=== PATIENT | female | born 1985 | race Caucasian/White ===

== ENCOUNTER → 2019-09-22 07:52 | Outpatient (BNVA) | payer MEDICAID, SELFPAY | PROVIDERS: Family Provider Nurse Practitioner; PCP Nurse Practitioner; Visit Provider Nurse Practitioner Psychiatric/Mental Health | DX: F33.2 Major depressive disorder, recurrent severe without psychotic features (principal); F41.9 Anxiety disorder, unspecified | CPT/HCPCS: 99213 ==

== ENCOUNTER → 2019-10-19 08:13 | Outpatient (BNVA) | payer MEDICAID, SELFPAY | PROVIDERS: Family Provider Nurse Practitioner; PCP Nurse Practitioner; Visit Provider Counselor Professional | DX: F33.2 Major depressive disorder, recurrent severe without psychotic features (principal); F40.10 Social phobia, unspecified | CPT/HCPCS: 90791 ==

== ENCOUNTER → 2019-11-03 07:48 | Outpatient (BNVA) | payer MEDICAID, SELFPAY | PROVIDERS: Family Provider Nurse Practitioner; PCP Nurse Practitioner; Visit Provider Nurse Practitioner Psychiatric/Mental Health | DX: F33.2 Major depressive disorder, recurrent severe without psychotic features (principal); F41.9 Anxiety disorder, unspecified | CPT/HCPCS: 99213 ==

== ENCOUNTER → 2020-02-20 13:25 | Outpatient (BNVA) | payer MEDICAID, SELFPAY | PROVIDERS: Family Provider Nurse Practitioner; PCP Nurse Practitioner; Visit Provider Nurse Practitioner Family | DX: Z11.59 Encounter for screening for other viral diseases (principal); Z20.828 Contact with and (suspected) exposure to other viral communicable diseases | CPT/HCPCS: 87635 ==

== ENCOUNTER 2021-03-08 10:09 | Outpatient (CLI) | payer MEDICAID, SELFPAY ==
--- NOTE | 2021-03-08 10:22 | US_ITS ---
WS: [id number] ULTRASOUND THYROID TECHNIQUE: Ultrasound of the thyroid. CLINICAL INFORMATION: NECK MASS COMPARISON: None. FINDINGS: Thyroid: Asymmetric enlargement of the right thyroid lobe compared to the left. Diffuse heterogeneous right thyroid lobe echotexture. Left thyroid lobe has a more normal appearance. No nodules to target for biopsy. Right thyroid lobe: 6.9 cm x 4.7 cm x 3.7 cm Left thyroid lobe: 3.7 cm x 1.5 cm x 2.0 cm. Isthmus: 0.4 mm. Cervical lymphadenopathy: None. US/US thyroid [id number] IMPRESSION: 1. Asymmetric heterogeneous enlargement of the right thyroid lobe compared to the left likely due to goiter. Recommend correlation with thyroid function stud ies. 2. No dominant nodules to target for biopsy.
== END 2021-03-08 10:10 | disposition home or self-care (01) ==
PROVIDERS: PCP Nurse Practitioner Family; Visit Provider Nurse Practitioner Family
DX: R22.1 Localized swelling, mass and lump, neck (principal); E04.9 Nontoxic goiter, unspecified
CPT/HCPCS: 76536

== ENCOUNTER 2021-07-01 14:54 | Outpatient (CLI) | payer MEDICAID, SELFPAY ==
--- NOTE | 2021-07-01 14:58 | US_ITS ---
WS: [id number] RIGHT UPPER QUADRANT ULTRASOUND HISTORY: ELEVATED LIVER ENZYMES COMPARISON: None. Technically difficult RIGHT upper quadrant ultrasound due to body habitus. Liver: 18.9 cm in length. Enlarged dense liver. The entire liver not well visualized due to hepatic s teatosis and attenuation. No mass or bile duct dilatation identified. Portal Vein: Not well visualized. Gallbladder: Normally distended gallbladder with no stones or wall thickening. CBD: 0.5 cm Pancreas: Distal body and tail completely obscured by bowel gas. Head is normal. Right kidney: 11.1 cm in length. Normal size and echogenicity. No hydronephrosis or mass. Aorta and IVC: Unremarkable abdominal aorta and IVC. No ascites. US/US gall bladder [id number] IMPRESSION: 1. Technically difficult and limited evaluation of the RIGHT upper quadrant du e to body habitus. 2. Gallbladder is normal. 3. Moderate hepatomegaly and hepatic steatosis.
== END 2021-07-01 14:55 | disposition home or self-care (01) ==
LOC: RAD 14:55
PROVIDERS: PCP Nurse Practitioner Family; Visit Provider Nurse Practitioner Family
DX: R74.8 Abnormal levels of other serum enzymes (principal); R16.0 Hepatomegaly, not elsewhere classified; K76.0 Fatty (change of) liver, not elsewhere classified
CPT/HCPCS: 76705

== ENCOUNTER → 2022-02-26 14:11 | Outpatient (BNVA) | payer MEDICAID, SELFPAY | PROVIDERS: PCP Family Medicine; Visit Provider Family Medicine | DX: E11.9 Type 2 diabetes mellitus without complications (principal); F31.9 Bipolar disorder, unspecified; I10 Essential (primary) hypertension | CPT/HCPCS: 80053; 80061; 83036; 85025 ==

== ENCOUNTER → 2022-09-10 08:41 | Outpatient (BNVA) | payer MEDICAID, SELFPAY | PROVIDERS: PCP Family Medicine; Visit Provider Family Medicine | DX: E11.9 Type 2 diabetes mellitus without complications (principal); I10 Essential (primary) hypertension; E04.9 Nontoxic goiter, unspecified | CPT/HCPCS: 80053; 80061; 83036; 84439; 84443; 84481; 85025 ==

== ENCOUNTER 2022-09-25 14:12 | Outpatient (CLI) | payer MEDICAID, SELFPAY ==
--- NOTE | 2022-09-25 14:30 | US_ITS ---
WS: [id number] THYROID ULTRASOUND HISTORY: Enlarged thyroid. COMPARISON: 03/08/2021 Right lobe: 4.1 cm x 4.0 cm x 7.2 cm (w x ap x l). Volume: 60.6 cm3. Markedly enlarged heterogeneous LEFT thyroid. Thyroid is similar size to the prior study. Mixed echog enicity throughout the thyroid. Very similar to the prior study. There are cystic and solid component s. Very minimal increased vascularity. Left lobe: 1.0 cm x 1.6 cm x 4.4 cm (w x ap x l). Volume: 3.6 cm3. Normal size and echotexture. No significant or dominant nodules are present. Isthmus: 0.4 cm. Unremarkable appearing cervical chain lymph nodes. US/US thyroid [id number] IMPRESSION: 1. Diffuse marked enlargement of the RIGHT thyroid. Asymmetric to the LEFT thy roid but similar to the prior exam of 03/08/2021. May be a goiter. Neoplasm is n ot excluded. 2. Small caliber LEFT thyroid.
== END 2022-09-25 14:13 | disposition home or self-care (01) ==
LOC: RAD 14:15
PROVIDERS: PCP Family Medicine; Visit Provider Family Medicine
DX: E04.9 Nontoxic goiter, unspecified (principal)
CPT/HCPCS: 76536; 80053; 80061; 83036; 84439; 84443; 84481; 85025

== ENCOUNTER 2023-02-19 14:47 | Outpatient (CLI) | payer MEDICAID, SELFPAY ==
--- NOTE | 2023-02-19 14:50 | XR_ITS ---
WS: [id number] Exam: XR foot LT 2V [id number] Date/Time of Exam: 02/19/2023 2:54 PM Reason For Exam: Left foot pain No acute fracture or dislocation. Unremarkable soft tissues. Large calcaneal spurs. IMPRESSION: 1. No fracture noted. 2. Large calcaneal spurs with marked cortical thickening of the posterior calcaneus.
== END 2023-02-19 14:48 | disposition home or self-care (01) ==
PROVIDERS: PCP Family Medicine; Visit Provider Family Medicine
DX: M77.32 Calcaneal spur, left foot (principal); M79.672 Pain in left foot
CPT/HCPCS: 73620

== ENCOUNTER 2023-04-03 12:09 | Outpatient (CLI) | payer MEDICAID, SELFPAY ==
--- NOTE | 2023-04-03 12:22 | CT_ITS ---
WS: [id number] CT NECK TECHNIQUE: Contrast-enhanced CT of the neck with coronal and sagittal reformatted images. CLINICAL INFORMATION: NONTOXIC GOITER/NONTOXIC MULTINODULAR GOITER/OTHER DYSPHAGIA COMPARISON: Ultrasound 09/25/2022 DLP: 410.[address] scans at [facility] use at least one of these dose optimization techniques: automated e xposure control; mA and/or kV adjustment per patient size (includes targeted exams where dose is matc hed to clinical indication); or iterative reconstruction. FINDINGS: Diffuse marked enlargement of the RIGHT thyroid similar to the recent ultrasound. Normal-appearing LE FT thyroid. Markedly enlarged RIGHT thyroid measures approximately 3.7 x 3.9 x 7.1 cm with diffuse he terogeneous enhancement. Mild RIGHT to LEFT mass effect on the trachea. No critical airway stenosis. Parotid glands are normal. Normal submandibular glands. Mastoid air cells are well aerated. Paranasal sinuses are well aerated. Normal posterior nasopharynx. Normal parapharyngeal fat. No evidence of amezcua praglottic or glottic mass. Subglottic airway is patent. Lung apices are well aerated. A few hazy [place] cities in the LEFT greater than RIGHT upper lobe likely inflammatory. Mild bilateral cervical lymphad enopathy in the upper cervical chains. Largest lymph nodes measure 10 to 11 mm in short axis dimensio n. These are nonspecific in etiology. IMPRESSION: 1. Diffuse heterogeneous enhancement with marked enlargement of the RIGHT thyroid lobe similar to th e prior ultrasound measuring up to 7.1 cm nonspecific but most likely due to goiter. This could be fu rther evaluated with ultrasound guided FNA if indicated. Mild RIGHT to LEFT mass effect on the trache a. No critical stenosis. 2. LEFT thyroid is normal in appearance. 3. Mild bilateral cervical lymphadenopathy in the upper cervical chains nonspecific but may be react derick. Largest lymph nodes measure 10 to 11 mm in short axis dimension. 4. No other acute findings.
[2023-04-03] MEDS: iohexol 350 mg/mL 500 mL Btl (per mL) IV (12:49)
== END 2023-04-03 12:10 | disposition home or self-care (01) ==
LOC: RAD 12:10
PROVIDERS: PCP Family Medicine; Visit Provider Specialist
DX: E04.2 Nontoxic multinodular goiter (principal); R13.10 Dysphagia, unspecified; R59.0 Localized enlarged lymph nodes
CPT/HCPCS: 70491; Q9967

== ENCOUNTER 2023-04-07 14:22 | Observation (INO) | payer MEDICAID, SELFPAY ==
[2023-04-07] VITALS (23 sets, daily range): BP systolic 105–153; BP diastolic 62–114; PULSE 80–94; RESP 11–21; TEMP 36.4–36.7; O2SAT 94–100; BMI 52.2
--- NOTE | 2023-04-07 11:14 | ECG_ITS ---
[facility] Test Date: 2023-04-07 Pat Name: Estephania Chanel Department: Room: Gender: Female [employer]: : 1985 Requested By: Tyler Smith Order Number: [id number] Becky MD: Yu Olson M.D. Measurements Intervals [place] Rate: 78 P: 34 IA: 184 QRS: 23 QRSD: 89 T: 9 QT: 371 QTc: 424 Interpretive Statements SINUS RHYTHM No previous ECG available for comparison Early repolarization changes in the high lateral leads Electronically Signed On 04-07-2023 21:46:47 ATTENDING RADIOLOGIST by Yu Olson M.D. [email or web address] behavioral health systemThe Good Mortgage Companyuniversity hospitals [facility].Ravel Law/store/OM/[id number]
[2023-04-07 11:29] LABS: Glucose Point of Care 106 mg/dL (70-110)
--- NOTE | 2023-04-07 11:34 | W.PM.OPSUD ---
Surgery/Procedure H&P Update DATE OF PROCEDURE: April 07, 2023 DATE H&P PERFORMED: 03/23/23 PRIMARY INDICATION FOR PROCEDURE: Right thyroid nodule with suspicious FNA biopsy who desires surgical excision. PLANNED PROCEDURE: Operation Date: 04/07/23 13:00 Proposed Procedures p Right Hemithyroidectomy 38620,E04.9,E04.2,R13.19(Right) - Michael Ashby MD
[2023-04-07] MEDS: sodium chloride 0.9% 1,000 ML 30 ML IV (11:37)
[2023-04-07] MEDS: midazolam 1 mg/mL INJ 2 mL 2 MG IVP (11:39)
[2023-04-07 11:41] LABS: Basophils # 0.1 10^3/uL (0.0-0.1); Basophils % 0.9 %; Eosinophils # 0.1 10^3/uL (0.0-0.8); Eosinophils % 2.3 %; Hematocrit 44.8 % (36-47); Lymphocytes # 1.5 10^3/uL (0.8-4.8); Lymphocytes % 26.2 %; Mean Corpuscular HGB Conc 31.7 g/dL (30-55); Mean Corpuscular Hemoglobin 28.3 pg (27-33); Mean Corpuscular Volume 89.2 fl (85-98); Mean Platelet Volume 8.7 fL (7.4-10.4); Monocytes # 0.4 10^3/uL (0.2-0.9); Monocytes % 6.5 %; Neutrophils # 3.56 10^3/uL (1.8-7.7); Neutrophils % 63.7 %; Nucleated Red Blood Cells % 0 %; Platelet Count 271 10^3/cmm (157-399); Red Blood Count 5.02 10^6/uL (3.85-5.65); Red Cell Distribution Width 13.9 % (12.1-15.1); White Blood Count 5.58 10^3/uL (3.29-11.43)
[2023-04-07 12:00] LABS: Anion Gap 10.8 (5-19); Blood Urea Nitrogen 8 mg/dL (6-20); Calcium 9.2 mg/dL (8.5-10.5); Carbon Dioxide 28 mmol/L (22-29); Chloride 102 mmol/L (98-107); Creatinine Clr Calc Pharmacy 149.8573; Glomerular Filtration Rate 93.2 mL/min (90-130); Glucose 110 mg/dL (65-115); Osmolality Calculated 283 mOsm/kg (285-295); Potassium 3.8 mmol/L (3.5-5.1); Sodium 137 mmol/L (136-145)
[2023-04-07] MEDS: ceFAZolin 3,000 MG in sodium chloride 0.9% (plus) 100 ML 200 MG IV ×2 (12:00→20:31)
[2023-04-07] MEDS: lidocaine-epi 2% 20 mL INJ INJECTION (12:31)
[2023-04-07] MEDS: fluorescein 1 mg Strip XX ×2 (13:18→13:48)
[2023-04-07] MEDS: EPINEPHrine 1 mg/mL INJ 4 MG (13:18)
[2023-04-07] MEDS: EPINEPHrine 1 mg/mL INJ XX ×2 (13:18→13:48)
[2023-04-07] MEDS: ceFAZolin 1,000 mg SDV 2000 MG IRRIGATION (13:20)
[2023-04-07] MEDS: thrombin 5,000 unit SDV 5000 UNIT XX (13:22)
--- NOTE | 2023-04-07 13:33 | ANES.PREANE2 ---
Pre-Anesthetic Assessment Height/Weight: Height 1.63 m Weight 137.892 kg Temp Pulse Resp BP Pulse Ox O2 Del Method 97.5 F L 80 18 153/114 100 Room Air 04/07/23 11:41 04/07/23 11:41 04/07/23 11:41 04/07/23 11:41 04/07/23 11:41 04/07/23 11:41 Operation Date: 04/07/23 13:00 Proposed Procedures p Right Hemithyroidectomy 05683,E04.9,E04.2,R13.19(Right) - Michael Ashby MD Familial anesthetic complications: none Was Beta Georges taken within 24 hours: N/A Was Clonidine taken within 24 hours: N/A Last intake: Intake Last Liquid Date 04/06/23 Last Liquid Time 23:00 Last Solid Date 04/06/23 Last Solid Time 23:00 Social No alcohol and No tobacco Exam alert, oriented x 3, clear to auscultation bilaterally and regular rate & rhythm Airway Submandibular: within normal limits Cervical ROM: within normal limits Mallampati: Class II Dentition: full Pulmonary Asthma CV/HEM Hypertension (poorly controlled) GI Gastroesophageal Reflux Disease Metabolic Diabetes Mellitus and Morbid Obesity Neuropsych Bipolar Anesthetic Plan ASA status: 3 Anesthesia: General Medications/Allergies Home Medications Medication Instructions Recorded Confirmed Last Taken Type mupirocin 2 % topical ointment 1 applic topical BID #22 grams 02/26/22 04/03/23 Unknown Rx pen needle, diabetic 32 gauge x #100 ea 11/24/22 02/17/23 Unknown Rx 1/4 (TechLITE Pen Needle) blood sugar diagnostic (NetviewerTouch #100 strips 01/26/23 02/17/23 Unknown Rx Ultra Test strips) liraglutide 0.6 mg/0.1 mL (18 mg/3 1.2 mg SUBCUT DAILY 04/03/23 04/03/23 04/02/23 History mL) subcutaneous pen injector (nWay 2-Nick) buspirone 10 mg tablet 10 mg PO BID 04/07/23 04/07/23 Unknown History fluoxetine 40 mg capsule 40 mg PO DAILY 04/07/23 04/07/23 04/06/23 History lamotrigine 150 mg tablet 150 mg PO BID 04/07/23 04/07/23 04/06/23 History lamotrigine 25 mg tablet 25 mg PO BID 04/07/23 04/07/23 04/06/23 History montelukast 10 mg tablet 10 mg PO DAILY 04/07/23 04/07/23 Unknown History (Savannair) valsartan 80 mg tablet 80 mg PO DAILY 04/07/23 04/07/23 03/31/23 History Allergies Allergy/AdvReac Type Severity Reaction Status Date / Time No Known Allergies Allergy Verified 02/17/23 13:21 Current Medications Generic Name Dose Route Start Last Admin Trade Name Freq PRN Reason Stop Dose Admin Sodium Chloride 1,000 mls @ 30 mls/hr 04/07/23 11:00 04/07/23 11:37 Sodium Chloride 0.9% IV 04/08/23 10:59 30 mls/hr .Q24H [place] Administration Midazolam HCl 2 mg 04/07/23 10:46 04/07/23 11:39 Midazolam 1 Mg/Ml Inj 2 Ml IVP 2 mg Q5M PRN Administration Preop Anxiety PFSH Anesthesia Medical History Benign essential HTN Bipolar 1 disorder GERD (gastroesophageal reflux disease) Seasonal allergies Type 2 diabetes mellitus, without long-term current use of insulin Surgical History H/O section x2 Family History Mother Diabetes Hypertension Father Hypertension Heart disease Social History Smoking and tobacco/nicotine status: former use of tobacco/nicotine Alcohol intake: never Substance/Drug Use: never Current gender identity: Female Female Reproductive History Spontaneous abortions: No Data Anesthesia 04/07/23 11:23 04/07/23 11:23 Short CBC 04/07/23 Range/Units 11:23 WBC 5.58 (3.29-11.43) 10^3/uL Hgb 14.20 (11.27-16.99) g/dL Hct 44.8 (36-47) % MCV 89.2 (85-98) fl Plt Count 271 (157-399) 10^3/cmm Neut % (Auto) 63.7 % Neut # (Auto) 3.56 (1.8-7.7) 10^3/uL BMP 04/07/23 11:23 Sodium 137 Potassium 3.8 Chloride 102 Carbon Dioxide 28 BUN 8 Creatinine 0.7 Glucose 110 Calcium 9.2 Cardiac Studies: No Data to Display
[2023-04-07] MEDS: neomycin-poly-bacitracin oint 28 gm 10 APPLIC TOPICAL (14:48)
[2023-04-07] MEDS: triamcinolone 40 mg/mL SDV IM (15:02)
--- NOTE | 2023-04-07 15:10 | P.OP_ITS ---
Operative Report Date of procedure: April 07, 2023 Pre-op diagnosis: Right thyroid nodule with suspicious FNA biopsy Post-op diagnosis: same Post-op findings: - Large right thyroid lobe - Right recurrent laryngeal nerve identified and intact to vagal stimulation at end of case - O/W normal anterior neck exam Procedure done: Right hemithyroidectomy Implants: None Specimens removed/disposition: Right thyroid lobe Pathology: Right thyroid lobe Surgeon: Michael Ashby Surgeon: Michael Ashby MD Anesthesia: General Estimated blood loss (mL): 350 IV fluids (mL): 2,000 Urine output (mL): 50 Complications: None Findings: - Very large right thyroid lobe - Right recurrent laryngeal nerve identified and intact to vagal stimulation at the end of the case - O/W normal anterior neck exam Condition: stable Disposition: ICU Brief History: 37 yo wf with a h/o a right thyroid lobe nodule with a suspicious FNA biopsy who desires surgical therapy. Procedure: The patient was identified in the preop holding area and was taken to the operating where she was placed on the operating table in the supine position. Anesthesia was obtained with general endotracheal anesthesia after placing the nerve monitoring electrode on the endotracheal tube and guiding it into place with the glide scope. At this point horizontal skin incision was drawn out on the patient's anterior neck 2 fingerbreadths above the sternal notch. The wound was injected with local anesthesia the patient was then prepped and draped in the usual sterile fashion. The Neurvana nerve monitoring system was connected. At this point the skin incision was made with a 15 blade was carried down through the subcutaneous tissues until the strap muscles were identified. The strap muscles were elevated off the right thyroid lobe - the stap muscles were devided in the avascular midline and were retracted laterally. At this point the [place] retractor was placed in the wound, and the dissection proceeded over the right thyroid lobe. The right thyroid lobe was found to be extremely large, approximately 4-5 times normal size. It was dissected circumferentially while individually ligating and clipping the feeding vessels to the thyroid to include the middle thyroid vein and the inferior pole thyroid vessels and superior pole vessels. As this dissection approached the tracheoesophageal groove, the nerve monitoring hemostat was used to stimulate the vagus and the nerve monitoring circuit was found to be intact. At this point as the right lobe of the thyroid is rotated medially the dissection proceeded in the tracheoesophageal groove until the recurrent laryngeal nerve was identified both visually and electrically. The nerve was protected and the right thyroid lobe was removed in stages with blunt dissection with the nerve monitoring hemostat and micro bipolar cautery. Once the right lobe of the thyroid was finally removed and the isthmus was divided with harmonic scalpel, the wound was irrigated with a copious amount of warm normal saline. The wound was inspected for hemostasis which was found to be adequate. At this point Gelfoam soaked in thrombin and Decadron were placed over the recurrent laryngeal nerve on the right, and a closed suction drain was placed in the wound. The right lobe was inspected for parathyroid tissue after removal and none were found in the specimen. This was done after irrigating the wound with a copious amount normal saline. At the end of the case the right vagus nerve was stimulated in the carotid sheath and good signal was obtained. At this point the wound was closed in layers with 4-0 Monocryl sutures subcu and Dermabond and Steri-Strips on skin. At this point the procedure was terminated and control of the patient was returned to anesthesia where she underwent an uneventful reversal of anesthesia and extubation and was taken to the intensive care unit in stable condition. There were no operative anesthetic complications.
--- NOTE | 2023-04-07 15:33 | ANE.PACU2 ---
Inpatient post-anesthesia follow up: Airway intact: Yes Vital signs: Temperature 97.5 F Pulse Rate 80 Respiratory Rate 18 Blood Pressure 153/114 Pulse Oximetry 100 Oxygen Delivery Me thod Oxymask Oxygen Flow Rate Fraction of Inspir ed Oxygen Hydration adequate: Yes Nausea and vomiting: No Pain level: 2 Mental status: Baseline Additional Comments: Extubated, to ICU (per surgeon request), stable.
[2023-04-07] MEDS: famotidine 20 mg/2 mL INJ IVP (16:02)
[2023-04-07] MEDS: dexamethasone 10 mg/mL INJ IVP ×2 (16:02→21:37)
[2023-04-07] MEDS: lactated ringers 1,000 ML 100 ML IV (16:02)
[2023-04-07] MEDS: morphine 4 mg/mL SDV 1 mL 2 MG IVP ×2 (16:55→20:20)
[2023-04-07] MEDS: docusate sodium 100 mg Capsule PO (18:00)
[2023-04-07] MEDS: lamoTRIgine 25 mg Tablet PO (18:00)
[2023-04-07] MEDS: BuSPIRONE 10 mg Tablet PO (18:01)
[2023-04-07] MEDS: lamoTRIgine 100 mg Tablet 150 MG PO (18:01)
[2023-04-07] MEDS: mupirocin oint 22 gm 1 APPLIC TOPICAL (18:01)
--- NOTE | 2023-04-07 18:23 | P.PN_ITS ---
Subjective 2 Subjective: 37 yo wf who is night of surgery s/p rig ht hemithyroidectomy. The patient reports that she is doing well - her voice is unchanged from preop, and she has been able to drink. Her surgical pain is mild. She is o/w without c/o. Medications: Reviewed: Yes Vitals/I&O/Wt Last Vital Signs Temp 97.5 F L 04/07/23 11:41 Pulse 80 04/07/23 15:45 Resp 15 04/07/23 16:55 BP 113/76 04/07/23 15:45 Pulse Ox 96 04/07/23 16:55 O2 Del Method Oxymask 04/07/23 15:45 04/07/23 04/07/23 04/07/23 06:59 14:59 22:59 Intake Total 1100 / 1100 Output Total 50 / 50 Balance 1100 / 1100 -50 / 1050 Weight last 48 hrs Weight 137.892 kg Weight 137.892 kg Physical Exam 2 Const: COMMON NORMALS: no acute distress and patient oriented x3 GENERAL APPEARANCE: cooperative, comfortable, well kempt and well developed O RIENTATION/CONSCIOUSNESS: Yes awake, Yes oriented to person, Yes oriented to place and Yes oriented to time HENMT: COMMON NORMALS: normocephalic, atraumatic and Normal external nose present HEAD & SCALP: normocephalic and atraumatic FACE & SINUS: normal facial exam NOSE: Normal external nose present Eye: COMMON NORMALS: EOMs intact bilaterally, conjunctivae normal and no scleral icterus CONJUNCTIVA: Yes conjunctivae normal Neck/C-Spine: GENERAL: Yes trachea midline and Yes other (The anterior neck wound is intact without swelling.) Lymph: LYMPHATIC: no lymphadenopathy noted Neuro: COMMON NORMALS: patient oriented x3 SENSORIUM/ORIENTATION: Yes oriented to person, Yes oriented to place and Yes oriented to time Psych: APPEARANCE: Yes well kempt Urinary Catheter Management: Curry: Cath Placed During This Visit: yes Urinary Catheter Date of Insertion: 04/07/23 Urinary Catheter Time of Insertion: 12:25 Data 04/07/23 11:23 04/07/23 11:23 A&P Assessment and plan (1) Thyroid enlargement: Impression: Right thyroid nodule with a suspicious FNA biopsy doing well s/p right hemithryoidectomy Plan: - Overnight observation - Closed suction drain in place - Advance to regular diet - Anticipate d/c in the am (2) Thyroid disease: Attestations 2 Medical Necessity Statement*: The patient requires overnight observation of her airway Coding Level of Care Code Acute Code for Chg Fwd Diagnoses Thyroid enlargement E04.9 Thyroid disease E07.9
[2023-04-07] MEDS: HYDROcodone-acetaminophen 5-325 mg Tablet 1 TAB PO (21:36)
[2023-04-08] VITALS (7 sets, daily range): BP systolic 114–134; BP diastolic 70–80; PULSE 67–82; RESP 16–20; TEMP 36.8; O2SAT 93–98
[2023-04-08] MEDS: lactated ringers 1,000 ML 100 ML IV (02:10)
[2023-04-08] MEDS: famotidine 20 mg/2 mL INJ IVP (03:16)
[2023-04-08] MEDS: dexamethasone 10 mg/mL INJ IVP (03:17)
[2023-04-08] MEDS: ceFAZolin 3,000 MG in sodium chloride 0.9% (plus) 100 ML 200 MG IV (03:18)
--- NOTE | 2023-04-08 04:54 | P.PN_ITS ---
Subjective 2 Subjective: 37 yo wf who is POD #1 s/p right hemithy roidectomy. The patient reports that she is doing well - she is taking po well, she has minimal pain, and her voice is unchanged from preop. Medications: Reviewed: Yes Vitals/I&O/Wt Last Vital Signs Temp 98.1 F 04/07/23 20:39 Pulse 74 04/08/23 04:00 Resp 16 04/08/23 04:00 BP 124/70 04/08/23 04:00 Pulse Ox 96 04/08/23 04:00 O2 Del Method Room Air 04/08/23 04:00 04/07/23 04/07/23 04/08/23 14:59 22:59 06:59 Intake Total 1100 / 1100 696.667 / 1796.667 886.666 / 2683.333 Output Total 75 / 75 10 / Balance 1100 / 1100 621.667 / 1721.667 876.666 / 2598.333 Weight last 48 hrs Weight 137.892 kg Weight 137.892 kg Physical Exam 2 Const: COMMON NORMALS: no acute distress, average body habitus, patient oriented x3 and alert GENERAL APPEARANCE: cooperative HENMT: COMMON NORMALS: normocephalic, atraumatic, hearing grossly normal bilaterally and Normal external nose present HEAD & SCALP: normocephalic and atraumatic FACE & SINUS: normal facial exam NOSE: Normal external nose present MOUTH: Normal oral and palatal mucosa present Eye: COMMON NORMALS: conjunctivae normal and no scleral icterus C ONJUNCTIVA: Yes conjunctivae normal Neck/C-Spine: COMMON NORMALS: full ROM, no lymphadenopathy and supple G ENERAL: Yes trachea midline and Yes other (Neck wound without swelling or erythema) THYROID: other (Voice unchanged from preop.) Lymph: LYMPHATIC: no lymphadenopathy noted Chest: COMMONS NORMALS: normal inspection of the chest Resp: COMMON NORMALS: normal respiratory effort, No retractions, No use of accessory muscles and clear to auscultation bilaterally AUSCULTATION: clear to auscultation bilaterally Cardio: COMMON NORMALS: regular rate, regular rhythm and No murmurs present (Cardio) RATE: regular rate RHYTHM: regular rhythm GI: COMMON NORMALS: Normal to inspection, nondistended, normoactive bowel sounds present Extremity: COMMON NORMALS: normal to inspection Neuro: COMMON NORMALS: patient oriented x3 SENSORIUM/ORIENTATION: Yes alert Urinary Catheter Management: Curry: Cath Placed During This Visit: yes Urinary Catheter Date of Insertion: 04/07/23 Urinary Catheter Time of Insertion: 12:25 Data 04/07/23 11:23 04/07/23 11:23 A&P Assessment and plan (1) Thyroid enlargement: Impression: POD #1 s/p right hemithyroidectomy for right inferior pole nodule with suspicious FNA biopsy. The patient is doing well post op Plan: - Resume all preop meds - Sarita () tabs: take 1-2 tabs po Q5 hours prn pain, #25, NR - Empty drain and record output once daily - F/U in Dr. Ashby's office on 04/10/23 @ 1300 - Contact Dr. Ashby for any problems - Doxycycline 100mg po BID X 10 days (2) Thyroid disease: Attestations 2 Medical Necessity Statement*: The patient required overnight observation of her airway Coding Level of Care Code Acute Code for Chg Fwd Diagnoses Thyroid enlargement E04.9 Thyroid disease E07.9
== END 2023-04-08 06:13 | disposition home or self-care (01) ==
LOC: ICU 21:30
PROVIDERS: Anesthesiology; Admitting Provider Specialist; PCP Family Medicine; Visit Provider Specialist
PROC: (CPT 60220; principal; 2023-04-07 12:50)
DX: C73 Malignant neoplasm of thyroid gland (principal); I10 Essential (primary) hypertension; E11.9 Type 2 diabetes mellitus without complications; E66.01 Morbid (severe) obesity due to excess calories; Z68.43 Body mass index [BMI] 50.0-59.9, adult; Z87.891 Personal history of nicotine dependence
CPT/HCPCS: 60220; 36415; 36416; 51702; 80048; 81025; 82962; 85025; 88307; 93005; G0378; J0171; J0330; J0690; J1100; J1170; J2250; J2270; J2405; J2704; J3010; J3301; J3490; J7030; J7120

== ENCOUNTER 2023-05-12 09:57 | Observation (INO) | payer MEDICAID, SELFPAY ==
[2023-05-12] VITALS (11 sets, daily range): BP systolic 113–154; BP diastolic 73–98; PULSE 72–95; RESP 13–19; TEMP 36.4–37.1; O2SAT 93–100; BMI 52.3
[2023-05-12 06:22] LABS: Glucose Point of Care 96 mg/dL (70-110)
[2023-05-12 06:24] LABS: OR HCG Qualitative Urine Negative (Negative)
[2023-05-12 06:25] LABS: Basophils % 0.7 %; Eosinophils # 0.2 10^3/uL (0.0-0.8); Eosinophils % 2.8 %; Hematocrit 40.5 % (36-47); Lymphocytes # 1.7 10^3/uL (0.8-4.8); Lymphocytes % 30.4 %; Mean Corpuscular HGB Conc 31.9 g/dL (30-55); Mean Corpuscular Hemoglobin 28.2 pg (27-33); Mean Corpuscular Volume 88.4 fl (85-98); Mean Platelet Volume 8.8 fL (7.4-10.4); Monocytes # 0.5 10^3/uL (0.2-0.9); Monocytes % 8.5 %; Neutrophils # 3.11 10^3/uL (1.8-7.7); Neutrophils % 57.4 %; Nucleated Red Blood Cells % 0 %; Platelet Count 269 10^3/cmm (157-399); Red Blood Count 4.58 10^6/uL (3.85-5.65); White Blood Count 5.42 10^3/uL (3.29-11.43)
--- NOTE | 2023-05-12 06:44 | P.ANESASSM_ITS ---
Pre-Anesthetic Assessment Height/Weight: Height 1.63 m Weight 138.346 kg Temp Pulse Resp BP Pulse Ox O2 Del Method 97.6 F 72 18 154/98 100 Room Air 05/12/23 06:03 05/12/23 06:03 05/12/23 06:03 05/12/23 06:03 05/12/23 06:03 05/12/23 06:08 Operation Date: 05/12/23 07:00 Proposed Procedures p Complete Left Hemithyroidectomy 02679,34004,E04.9,E04.2,E04.1(Left) - Michael Ashby MD Familial anesthetic complications: None Was Beta Georges taken within 24 hours: N/A Was Clonidine taken within 24 hours: N/A Last intake: Intake Last Liquid Date 05/11/23 Last Liquid Time 21:00 Last Solid Date 05/11/23 Last Solid Time 21:00 Social No alcohol and No tobacco Exam alert, oriented x 3, clear to auscultation bilaterally and regular rate & rhythm Airway Dentition: other (4 missing teeth) CV/HEM Hypertension Metabolic Diabetes Mellitus, Morbid Obesity and Thyroid Disease mild L to R mass effect on trachea with no critical stenosis Anesthetic Plan ASA status: 3 Anesthesia: General Risk of > 500 ml blood loss (7ml/kg in children): No Medications/Allergies Home Medications Medication Instructions Recorded Confirmed Last Taken Type liraglutide 0.6 mg/0.1 mL (18 mg/3 1.2 mg SUBCUT DAILY 04/03/23 05/11/23 05/11/23 History mL) subcutaneous pen injector ([employer] 2-Nick) buspirone 10 mg tablet 10 mg PO BID 04/07/23 05/11/23 05/11/23 History fluoxetine 40 mg capsule 40 mg PO DAILY 04/07/23 05/11/23 05/11/23 History lamotrigine 150 mg tablet 150 mg PO BID 04/07/23 05/11/23 05/11/23 History lamotrigine 25 mg tablet 25 mg PO BID 04/07/23 05/11/23 05/11/23 History montelukast 10 mg tablet 10 mg PO DAILY 04/07/23 05/11/23 05/11/23 History (Singulair) valsartan 80 mg tablet 80 mg PO DAILY 01/05/3005/11/23 05/11/23 History hydrocodone 5 mg-acetaminophen 325 1 tab PO Q6H PRN pain #25 tabs 04/08/23 05/11/23 Rx mg tablet Allergies Allergy/AdvReac Type Severity Reaction Status Date / Time No Known Allergies Allergy Verified 05/11/23 08:41 [facility] Anesthesia Medical History Benign essential HTN Bipolar 1 disorder GERD (gastroesophageal reflux disease) Seasonal allergies Type 2 diabetes mellitus, without long-term current use of insulin Surgical History H/O section x2 Family History Mother Diabetes Hypertension Father Hypertension Heart disease Social History Smoking and tobacco/nicotine status: former use of tobacco/nicotine Alcohol intake: never Substance/Drug Use: never Current gender identity: Female Female Reproductive History Date of last menstrual period: 05/04/23 Spontaneous abortions: No Data Anesthesia 05/12/23 06:15 Short CBC 05/12/23 Range/Units 06:15 WBC 5.42 (3.29-11.43) 10^3/uL Hgb 12.90 (11.27-16.99) g/dL Hct 40.5 (36-47) % MCV 88.4 (85-98) fl Plt Count 269 (157-399) 10^3/cmm Neut % (Auto) 57.4 % Neut # (Auto) 3.11 (1.8-7.7) 10^3/uL Cardiac Studies: 2 No Data to Display
--- NOTE | 2023-05-12 06:53 | W.PM.OPSUD ---
Surgery/Procedure H&P Update DATE OF PROCEDURE: May 12, 2023 DATE H&P PERFORMED: 04/17/23 PRIMARY INDICATION FOR PROCEDURE: Right thyroid lobe cancer PLANNED PROCEDURE: Operation Date: 05/12/23 07:00 Proposed Procedures p Complete Left Hemithyroidectomy [id number],E04.9,E04.2,E04.1(Left) - Michael Ashby MD
[2023-05-12] MEDS: ceFAZolin 3,000 MG in sodium chloride 0.9% (plus) 100 ML 200 MG IV (07:05)
[2023-05-12] MEDS: lidocaine-epi 1% 20 mL INJ INJECTION (07:50)
[2023-05-12] MEDS: ceFAZolin 1,000 mg SDV 1000 MG IRRIGATION (08:04)
[2023-05-12] MEDS: thrombin 5,000 unit SDV 5000 UNIT XX (08:04)
[2023-05-12] MEDS: EPINEPHrine 1 mg/mL INJ XX (08:04)
[2023-05-12] MEDS: fluorescein 1 mg Strip XX (08:04)
[2023-05-12] MEDS: neomycin-poly-bacitracin oint 28 gm 28 APPLIC TOPICAL (09:46)
[2023-05-12] MEDS: triamcinolone 40 mg/mL SDV IM (10:10)
--- NOTE | 2023-05-12 10:38 | P.OP_ITS ---
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 Post-op diagnosis: same Post-op diagnosis: Same Post-op findings: Extensive post surgical change of the anterior neck with extensive scar formation of the left thyroid be Procedure done: Left Yeyo/completion thyroidectomy Implants: None Specimens removed/disposition: Left thyroid lobe Pathology: Left thyroid lobe Surgeon: Michael Ashby Surgeon: Michael Ashby MD Resident Physician In Radiology: Qian Lyons Resident Physician In Radiology: Casey Chanel Anesthesia: General Estimated blood loss (mL): 30 IV fluids (mL): 1,000 Urine output (mL): 250 Complications: None Findings: - Extensive post surgical changes with associated scar formation/adhesions of the left thyroid bed - Left recurrent laryngeal nerve intact and functional at the end of the case - Parathyroid X 2 identified and preserved in place. - O/W normal left tracheoesophageal groove Condition: stable Disposition: ICU Brief History: 37 yo wf with a h/o follicular carcinoma of the left thyroid gland who presents today for completion excision of the left thyroid lobe. Procedure: The patient was identified in the preop holding area and was taken to the operating where she was placed on the operative table supine position. Anesthesia was obtained with general endotracheal anesthesia with the nerve monitoring electrode in place on the endotracheal tube - proper placement of this electrode was ensured with the glide scope at intubation. The neck wound was drawn out on the patient was injected with local anesthesia. The patient was prepped and draped in the usual sterile fashion. An incision was then made with a 15 blade and was carried down to subcutaneous tissue. There was extensive scar tissue encountered over the anterior neck consistent with patient's prior right hemithyroidectomy. At this point the left lobe was dissected free from the overlying muscles which were adherent to the surface of the gland. The [place] retractor was placed in the patient. The left thyroid lobe was identified and was retracted medially and dissected away from the carotid sheath. The left vagus nerve was stimulated and the recurrent nerve circuit was intact. At this point a circumferential dissection was begun around the left thyroid lobe beginning with the middle thyroid vein which was identified, dissected free, ligated and divided. Attention was then turned to the left inferior pole which was dissected free from the surrounding soft tissues and the thyrothymic horn which was retracted inferiorly preserving the inferior parathyroid gland. As this point, the dissection proceeded around the left thyroid lobe as the left lobe was rotated medially and the recurrent nerve was identified visually and electrically in the tracheoesophageal groove. While visualizing and protecting the recurrent nerve the dissection proceeded medially until the superior pole vessels were individually dissected free ligated and divided. The superior parathyroid was preserved in place as the left lobe was rotated medially while dissecting Celis's ligament from the airway. At this point the left lobe was removed and inspection was carried out of the patient's left tracheoesophageal groove. The vagus nerve was again stimulated with the Syrmo dissecting hemostat and a positive response was obtained. Hemostasis was achieved with judicious application of bipolar cautery. The neck wound was then irrigated with a copious amount of normal saline and was reinspected for hemostasis which was found to be adequate. Once hemostasis had been achieve, Gelfoam soaked in thrombin and dexamethasone were placed in the left tracheoesophageal groove. A drain was placed in the wound and then the wound was closed with interrupted 4-0 Monocryl sutures in the subcutaneous tissues and subcuticular 5-0 Monocryl sutures on the skin which was followed by Dermabond and Steri-Strips. The procedure was then terminated and control of the patient was returned to anesthesia where she underwent uneventful reversal of anesthesia extubation and was taken to the recovery room in stable condition. There were no operative or anesthetic complications.
--- NOTE | 2023-05-12 10:51 | ANE.PACU2 ---
Inpatient post-anesthesia follow up: Vital signs: Temperature 97.5 F Pulse Rate 90 Respiratory Rate 13 Blood Pressure 133/76 Pulse Oximetry 100 Oxygen Delivery Me thod Room Air Oxygen Flow Rate Fraction of Inspir ed Oxygen Hydration adequate: Yes Nausea and vomiting: No Pain level: 1 Mental status: Baseline Additional Comments: no apparent anesthetic complications noted.
[2023-05-12 11:12] LABS: Calcium 8.4 mg/dL (8.5-10.5)
[2023-05-12 11:13] LABS: Ionized Calcium 1.1 mmol/L (1.1-1.4)
[2023-05-12] MEDS: morphine 4 mg/mL SDV 1 mL 2 MG IVP ×2 (11:14→19:56)
[2023-05-12] MEDS: famotidine 20 mg/2 mL INJ IVP ×2 (12:01→22:17)
[2023-05-12] MEDS: lactated ringers 1,000 ML 100 ML IV ×2 (12:04→20:37)
[2023-05-12] MEDS: ceFAZolin 2,000 MG in sodium chloride 0.9% (plus) 50 ML 100 MG IV ×2 (15:42→22:17)
[2023-05-12] MEDS: HYDROcodone-acetaminophen 5-325 mg Tablet 1 TAB PO (15:46)
[2023-05-12 15:52] LABS: Ionized Calcium 1.1 mmol/L (1.1-1.4)
--- NOTE | 2023-05-12 17:44 | P.PN_ITS ---
Subjective 2 Subjective: 37 yo wf who is night of surgery s/p lef t james/completion thyroidectomy. The patient reports that she is doing well. She has minimal pain, is breathing well, and is o/w without c/o. Medications: Reviewed: Yes Vitals/I&O/Wt Last Vital Signs Temp 97.5 F L 05/12/23 11:03 Pulse 80 05/12/23 11:27 Resp 15 05/12/23 11:03 BP 142/91 05/12/23 11:03 Pulse Ox 93 05/12/23 11:27 O2 Del Method Nasal Cannula 05/12/23 11:27 O2 Flow Rate 2 05/12/23 11:27 05/12/23 05/12/23 05/12/23 06:59 14:59 22:59 Intake Total 100 / 100 20 / 120 Output Total 250 / 250 1265 / 1515 Balance -150 / -150 -1245 / -1395 Weight last 48 hrs Weight 138.346 kg Physical Exam 2 Const: COMMON NORMALS: no acute distress, patient oriented x3 and alert G ENERAL APPEARANCE: cooperative NUTRITIONAL APPEARANCE: obese HENMT: COMMON NORMALS: normocephalic, atraumatic and Normal external nose present HEAD & SCALP: normocephalic and atraumatic FACE & SINUS: normal facial exam NOSE: Normal external nose present Eye: COMMON NORMALS: conjunctivae normal and no scleral icterus C ONJUNCTIVA: Yes conjunctivae normal Neck/C-Spine: COMMON NORMALS: full ROM, no lymphadenopathy, supple and Thyroid normal (Thyroid incision without swelling/fluctuance.) THYROID: Thyroid normal (Thyroid incision without swelling/fluctuance.) Resp: COMMON NORMALS: normal respiratory effort, No use of accessory muscles and clear to auscultation bilaterally AUSCULTATION: clear to auscultation bilaterally Cardio: COMMON NORMALS: regular rate, regular rhythm and No murmurs present (Cardio) RATE: regular rate RHYTHM: regular rhythm Extremity: COMMON NORMALS: normal to inspection Neuro: COMMON NORMALS: patient oriented x3 and CN's II-XII intact bilaterally SENSORIUM/ORIENTATION: Yes alert CRANIAL NERVES: Yes CN IX and CN X (glossopharyngeal/vagus) (The patient's voice is normal and unchanged from preop.) Urinary Catheter Management: Curry: Cath Placed During This Visit: yes Urinary Catheter Date of Insertion: 05/12/23 Urinary Catheter Time of Insertion: 07:45 Data 05/12/23 06:15 Other Labs: intact PTH = 69 A&P Assessment and plan (1) Thyroid disease: Impression: 37 yo wf with a h/o right thyroid lobe follicular carcinoma who is doing well s/p completion left hemithyroidectomy. Her ionized calcium level is normal and her intact PTH level is normal. Plan: - ICU observation overnight - BID ionized calcium monitoring - Continue closed suction drainage - Anticipate d/c in the am Attestations 2 Medical Necessity Statement*: The patient requires overnight observation of her airway and post op calcium levels Coding Level of Care Code Acute Code for Chg Fwd Diagnoses Thyroid disease E07.9
[2023-05-12] MEDS: BuSPIRONE 10 mg Tablet PO (18:23)
[2023-05-12] MEDS: docusate sodium 100 mg Capsule PO (18:23)
[2023-05-12] MEDS: lamoTRIgine 25 mg Tablet PO (18:23)
[2023-05-12] MEDS: lamoTRIgine 100 mg Tablet 150 MG PO (18:23)
[2023-05-13] VITALS: BP 113/67; PULSE 71; RESP 12; TEMP 36.9; O2SAT 95
[2023-05-13 02:00] VITALS: BP 110/68; PULSE 65; RESP 14; O2SAT 95
[2023-05-13 04:00] VITALS: BP 126/79; PULSE 73; RESP 15; TEMP 36.9; O2SAT 100
[2023-05-13 05:11] LABS: Ionized Calcium 1.1 mmol/L (1.1-1.4)
--- NOTE | 2023-05-13 05:19 | P.PN_ITS ---
Subjective 2 Subjective: 37 yo wf with a h/o follicular carcinoma of the right thyroid lobe who is POD #1 s/p left james/completion thyroidectomy. The patient is without c/o this morning. She has 3/10 pain, is taking food well, and has no other c/o. Medications: Reviewed: Yes Vitals/I&O/Wt Last Vital Signs Temp 98.4 F 05/13/23 04:00 Pulse 73 05/13/23 04:00 Resp 15 05/13/23 04:00 BP 126/79 05/13/23 04:00 Pulse Ox 100 05/13/23 04:00 O2 Del Method Room Air 05/13/23 04:00 O2 Flow Rate 2 05/12/23 11:27 05/12/23 05/12/23 05/13/23 14:59 22:59 06:59 Intake Total 100 / 100 1175 / 1275 100 / 1375 Output Total 250 / 250 2180 / 2430 1960 / 4390 Balance -150 / -150 -1005 / -1155 -1860 / -3015 Weight last 48 hrs Weight 140.977 kg Weight 138.346 kg Weight 138.346 kg Physical Exam 2 Const: COMMON NORMALS: no acute distress, patient oriented x3 and alert G ENERAL APPEARANCE: cooperative HENMT: COMMON NORMALS: normocephalic, atraumatic and Normal external nose present HEAD & SCALP: normocephalic and atraumatic FACE & SINUS: normal facial exam NOSE: Normal external nose present Eye: COMMON NORMALS: Equal, round and reactive pupils present and EOMs intact bilaterally PUPIL: Yes Equal, round and reactive pupils present Neck/C-Spine: COMMON NORMALS: full ROM, no lymphadenopathy and supple G ENERAL: Yes other (Neck wound without swelling/fluctuance.) Resp: COMMON NORMALS: normal respiratory effort, No use of accessory muscles and clear to auscultation bilaterally AUSCULTATION: clear to auscultation bilaterally Cardio: COMMON NORMALS: regular rate and regular rhythm RATE: regular rate RHYTHM: regular rhythm GI: COMMON NORMALS: Normal to inspection, nondistended, normoactive bowel sounds present Extremity: COMMON NORMALS: normal to inspection Neuro: COMMON NORMALS: patient oriented x3 SENSORIUM/ORIENTATION: Yes alert Urinary Catheter Management: Curry: Cath Placed During This Visit: yes Urinary Catheter Date of Insertion: 05/12/23 Urinary Catheter Time of Insertion: 07:45 Data 05/12/23 06:15 A&P Assessment and plan (1) Thyroid disease: Impression: POD #1 s/p left james/completion thyroidectomy doing well Plan: - Regular diet - Continue closed suction drainage - [place] () tabs: take 1-2 tabs po Q5 hours prn pain, #25, NR - Cytomel (25mcg) tabs: take 1 tab po BID, #60, RX5 - OsCal (500mg/200IU) tabs: take 1 po BID, #60 RX5 - F/U in Dr. Ashby's office in 48 hours - Notify Dr. Ashby for any problems Attestations 2 Medical Necessity Statement*: The patient required overnight observation of her airway and serum calcium levels Coding Level of Care Code Acute Code for Chg Fwd Diagnoses Thyroid disease E07.9
[2023-05-13 05:39] VITALS: BP 125/69; PULSE 78; RESP 14; TEMP 36.9; O2SAT 100
--- NOTE | 2023-05-13 05:54 | PC.NURSE ---
Dr. Ashby to bedside, discharge order given. Discharge instructions given to patient and ROBERTA drain care taught. Follow up appointment already made for Thursday05/15/[address] Ashby. Patricio Vegas, tolerated well.
[2023-05-13 05:57] VITALS: PULSE 78
[2023-05-13 06:00] VITALS: BP 125/69
--- NOTE | 2023-05-13 06:38 | PC.NURSE ---
Discharged to home with mother.
== END 2023-05-13 06:32 | disposition home or self-care (01) ==
LOC: ICU 05-13 05:27
PROVIDERS: Admitting Provider Specialist; PCP Family Medicine; Visit Provider Specialist
PROC: (CPT 60220; principal; 2023-05-12 07:00)
DX: C73 Malignant neoplasm of thyroid gland (principal); I10 Essential (primary) hypertension; E11.9 Type 2 diabetes mellitus without complications; E66.01 Morbid (severe) obesity due to excess calories; Z68.43 Body mass index [BMI] 50.0-59.9, adult; Z87.891 Personal history of nicotine dependence
CPT/HCPCS: 60220; 36415; 36416; 51702; 81025; 82310; 82330; 82962; 83970; 84703; 85025; 88307; G0378; J0171; J0330; J0690; J1100; J2250; J2270; J2405; J2704; J3010; J3301; J3490; J7120

== ENCOUNTER → 2023-05-26 09:15 | Outpatient (BNVA) | payer MEDICAID, SELFPAY | PROVIDERS: PCP Family Medicine; Referring Provider Specialist; Visit Provider Internal Medicine | DX: E07.9 Disorder of thyroid, unspecified (principal); C73 Malignant neoplasm of thyroid gland; E83.51 Hypocalcemia; E55.9 Vitamin D deficiency, unspecified | CPT/HCPCS: 36415; 82306; 82310; 83970 ==

== ENCOUNTER 2023-06-23 13:06 | Outpatient (CLI) | payer MEDICAID, SELFPAY ==
[2023-06-23 15:05] LABS: Free T4 Free Thyroxine 1.22 ng/dL (0.82-1.77); Thyroid Stimulating Hormone 10.17 uIU/mL (0.27-4.20)
[2023-06-25 11:05] LABS: Thyroglobulin AB <1 IU/mL (< or = 1)
[2023-06-29 17:09] LABS: Thyroglobulin Level 1.1 ng/mL
== END 2023-06-23 13:07 | disposition home or self-care (01) ==
LOC: LAB 13:07
PROVIDERS: PCP Family Medicine; Visit Provider Internal Medicine
DX: E83.51 Hypocalcemia (principal); E07.9 Disorder of thyroid, unspecified
CPT/HCPCS: 36415; 84432; 84439; 84443; 86800

== ENCOUNTER → 2023-07-15 09:48 | Outpatient (BNVA) | payer MEDICAID, SELFPAY | PROVIDERS: PCP Family Medicine; Visit Provider Family Medicine | DX: E03.9 Hypothyroidism, unspecified (principal); R25.2 Cramp and spasm; Z79.899 Other long term (current) drug therapy | CPT/HCPCS: 82607; 82728; 82746; 83540; 83735; 84439; 84443 ==

== ENCOUNTER → 2023-11-10 10:37 | Outpatient (BNVA) | payer MEDICAID, SELFPAY | PROVIDERS: PCP Family Medicine; Visit Provider Family Medicine | DX: I10 Essential (primary) hypertension (principal); E11.9 Type 2 diabetes mellitus without complications; E03.9 Hypothyroidism, unspecified; E55.9 Vitamin D deficiency, unspecified | CPT/HCPCS: 80053; 80061; 82306; 82746; 84432; 84439; 84443; 86800 ==

== ENCOUNTER 2023-11-30 13:21 | Outpatient (CLI) | payer MEDICAID, SELFPAY ==
--- NOTE | 2023-11-30 13:30 | USR_ITS ---
PROCEDURE INFORMATION: Exam: US Soft Tissue Head and Neck, Soft Tissue Exam date and time: 11/30/2023 1:38 PM Age: 38 years old Clinical indication: Condition or disease; Cancer; Thyroid; Additional info: Thyroid cancer, include tirads TECHNIQUE: Imaging protocol: Real-time ultrasound scan of the head and neck with image documentation. Exam focused on the soft tissue in the region of clinical concern. COMPARISON: [place] thyroid [id number] 09/25/2022 2:39 PM FINDINGS: Lymph nodes: There is in the right side of the neck a benign lymph node measuring 1.4 cm x 1.6 cm x 0.7 cm Soft tissues: Unremarkable. No fluid collections. A normal thyroid gland is not present corresponding to past history of thyroidectomy. US/US thyroid [id number] IMPRESSION: 1. Unremarkable soft tissues of the visualized head and neck. 2. Status post thyroidectomy 3. Benign lymph node right neck soft tissues
== END 2023-11-30 13:22 | disposition home or self-care (01) ==
LOC: RAD 13:22
PROVIDERS: PCP Family Medicine; Visit Provider Internal Medicine
DX: C73 Malignant neoplasm of thyroid gland (principal); R93.89 Abnormal findings on diagnostic imaging of other specified body structures; E89.0 Postprocedural hypothyroidism; R59.0 Localized enlarged lymph nodes
CPT/HCPCS: 76536

== ENCOUNTER 2023-12-29 12:37 | Outpatient (CLI) | payer MEDICAID, SELFPAY ==
[2023-12-29 13:15] LABS: Free T4 Free Thyroxine 2.46 ng/dL (0.82-1.77); Thyroid Stimulating Hormone 0.28 uIU/mL (0.27-4.20)
[2023-12-29 13:16] LABS: Calcium 8.9 mg/dL (8.5-10.5)
[2023-12-29 13:22] LABS: Parathyroid Hormone 103.8 pg/mL (15-65)
[2023-12-29 13:52] LABS: 25 Hydroxy Vitamin D 20 ng/mL (30-100)
== END 2023-12-29 12:38 | disposition home or self-care (01) ==
LOC: LAB 12:37
PROVIDERS: PCP Family Medicine; Visit Provider Internal Medicine
DX: E55.9 Vitamin D deficiency, unspecified (principal); C73 Malignant neoplasm of thyroid gland; E03.9 Hypothyroidism, unspecified
CPT/HCPCS: 36415; 82306; 82310; 83970; 84432; 84439; 84443; 86800

== ENCOUNTER 2024-01-25 20:41 | Emergency (ER) | payer MEDICAID, SELFPAY ==
[2024-01-25] VITALS (7 sets, daily range): BP systolic 120–145; BP diastolic 79–84; PULSE 77–91; RESP 12–20; TEMP 36.7; O2SAT 98–100; BMI 57.5
--- NOTE | 2024-01-25 20:40 | ECG_ITS ---
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
--- NOTE | 2024-01-25 20:48 | XRR_ITS ---
PROCEDURE INFORMATION: Exam: XR Chest Exam date and time: 01/25/2024 9:07 PM Age: 38 years old Clinical indication: Pain; Chest pressure; Additional info: Cp TECHNIQUE: Imaging protocol: Radiologic exam of the chest. Views: 1 view. COMPARISON: CT neck w con* [id number] 04/03/2023 12:41 PM FINDINGS: Lungs: Unremarkable. No consolidation. Pleural spaces: Unremarkable. No pleural effusion. No pneumothorax. Heart/Mediastinum: Unremarkable. No cardiomegaly. Bones/joints: Unremarkable. XR/XR chest 1V portable [id number] IMPRESSION: No acute findings.
--- NOTE | 2024-01-25 21:23 | W.ED.CHESTPA ---
HPI - Chest Pain General: Chief Complaint: Chest Pain Stated Complaint: Chest Pain Time Seen by Provider: 01/25/24 21:09 History of Present Illness: Patient resents to the ER with left-sided intermittent chest pain that started around 530 this afternoon. She is drivingly started. She describes it as sharp stabbing pain that radiates from the front to the back/takes a big deep breath or coughing. It is reproducible with palpation. Patient denies any cardiac history. Denies any shortness of breath diaphoresis or nausea vomiting fevers chills Related Data Previous Rx's Medication Instructions Recorded calcium 500 mg (as 1 tab PO BID #60 tabs 05/13/23 carbonate)-vitamin D3 5 mcg (200 unit) tablet (Os-Jack 500 + D3) blood sugar diagnostic (OneTouch #100 strips 08/24/23 Ultra Test strips) pen needle, diabetic 32 gauge x #100 ea 09/04/23 (TechLITE Pen Needle) levothyroxine 200 mcg tablet 200 mcg PO DAILY #60 tabs 11/24/23 levothyroxine 50 mcg tablet 50 mcg PO DAILY #60 tabs 11/24/23 buspirone 10 mg tablet See Rx Instructions .Route 11/30/23 .COMPLEX #60 tabs fluoxetine 40 mg capsule See Rx Instructions .Route 11/30/23 .COMPLEX #30 caps lamotrigine 150 mg tablet See Rx Instructions .Route 11/30/23 .COMPLEX #60 tabs lamotrigine 25 mg tablet See Rx Instructions .Route 11/30/23 .COMPLEX #60 tabs montelukast 10 mg tablet See Rx Instructions .Route 11/30/23 .COMPLEX #30 tabs valsartan 80 mg tablet See Rx Instructions .Route 11/30/23 .COMPLEX #30 tabs liraglutide 0.6 mg/0.1 mL (18 mg/3 See Rx Instructions .Route 01/04/24 mL) subcutaneous pen injector .COMPLEX #9 mL (Victoza 3-Nick) Allergies Allergy/AdvReac Type Severity Reaction Status Date / Time No Known Allergies Allergy Verified 01/05/24 07:24 Review of Systems General: Reports: 10 or more systems reviewed and unremarkable except in HPI and below PFSH ED PFSH: Medical History Seasonal allergies GERD (gastroesophageal reflux disease) Type 2 diabetes mellitus, without long-term current use of insulin Benign essential HTN Bipolar 1 disorder Surgical History Hx of thyroidectomy H/O section x2 Family History Mother Diabetes Hypertension Father Hypertension Heart disease Social History Smoking and tobacco/nicotine status: never used tobacco/nicotine Alcohol intake: never Substance/Drug Use: never Current gender identity: Female Female Reproductive History: Spontaneous abortions: No Physical Exam Const: COMMON NORMALS: no acute distress, average body habitus, patient oriented x3, no limitations, healthy appearing, alert and well nourished HENMT: COMMON NORMALS: normocephalic, atraumatic, hearing grossly normal bilaterally, external ears normal, Normal external nose present and moist oral mucous membranes HEAD & SCALP: normocephalic and atraumatic NOSE: Normal external nose present EXTERNAL EAR: Yes external ears normal Neck/C-Spine: COMMON NORMALS: no JVD Chest: COMMONS NORMALS: normal inspection of the chest; negative for normal palpation of entire chest wall (Tenderness with palpation reproduces chest pain) Resp: COMMON NORMALS: normal respiratory effort, No retractions, No use of accessory muscles and clear to auscultation bilaterally AUSCULTATION: clear to auscultation bilaterally Cardio: COMMON NORMALS: no JVD, regular rate, regular rhythm, S1 normal heart sound present, S2 normal heart sound present, No gallops present (Cardio), No clicks present (Cardio), No murmurs present (Cardio) and No rub (Cardio) RATE: regular rate RHYTHM: regular rhythm HEART SOUNDS: S1 normal heart sound present and S2 normal heart sound present GI: COMMON NORMALS: Normal to inspection, nondistended, normoactive bowel sounds present, Soft to palpation, non-tender, No hepatosplenomegaly present and no masses PALPATION: Yes Soft to palpation and Yes No hepatosplenomegaly present Neuro: COMMON NORMALS: patient oriented x3 SENSORIUM/ORIENTATION: Yes alert Course Vital Signs: Vital signs: Vital Signs Temperature 98.0 F 01/25/24 20:46 Pulse Rate 77 01/26/24 00:30 Respiratory Rate 16 01/26/24 00:30 Blood Pressure 118/85 01/26/24 00:30 Pulse Oximetry 98 01/26/24 00:30 Oxygen Delivery Me thod Room Air 01/26/24 00:30 MDM - Chest Pain Medical Decision Making Patient was worked up in a standard chest pain fashion with serial EKGs, enzymes, chest x-ray, EKGs, all of which was essentially benign. Patient be diagnosed with costochondritis secondary to coughing. Patient be discharged and told to follow-up with her PCP. Medical Records I reviewed the patient's medical records. Lab Data I reviewed the patient's lab results. 01/25/24 21:20 01/25/24 21:20 Radiology Impressions Chest X-Ray 01/25/24 20:48 IMPRESSION: No acute findings. Laboratory Results WBC 6.30 10^3/uL (3.29-11.43) 01/25/24 21:20 RBC 4.96 10^6/uL (3.85-5.65) 01/25/24 21:20 Hgb 13.30 g/dL (11.27-16.99) 01/25/24 21:20 Hct 43.0 % (36-47) 01/25/24 21:20 MCV 86.7 fl (85-98) 01/25/24 21:20 MCH 26.8 pg (27-33) L 01/25/24 21:20 MCHC 30.9 g/dL (30-55) 01/25/24 21:20 RDW 14.4 % (12.1-15.1) 01/25/24 21:20 Plt Count 318 10^3/cmm (157-399) 01/25/24 21:20 MPV 9.2 fL (7.4-10.4) 01/25/24 21:20 Neut % (Auto) 61.5 % 01/25/24 21:20 Lymph % (Auto) 29.4 % 01/25/24 21:20 [place] % (Auto) 5.9 % 01/25/24 21:20 Eos % (Auto) 2.4 % 01/25/24 21:20 Baso % (Auto) 0.6 % 01/25/24 21:20 Neut # (Auto) 3.88 10^3/uL (1.8-7.7) 01/25/24 21:20 Lymph # (Auto) 1.9 10^3/uL (0.8-4.8) 01/25/24 21:20 [place] # (Auto) 0.4 10^3/uL (0.2-0.9) 01/25/24 21:20 Eos # (Auto) 0.2 10^3/uL (0.0-0.8) 01/25/24 21:20 Baso # (Auto) 0.0 10^3/uL (0.0-0.1) 01/25/24 21:20 Nucleated RBC % (auto) 0 % 01/25/24 21:20 Nucleated RBCs # 0.0 /100WBC 01/25/24 21:20 Sodium 140 mmol/L (136-145) 01/25/24 21:20 Potassium 4.0 mmol/L (3.5-5.1) 01/25/24 21:20 Chloride 103 mmol/L (98-107) 01/25/24 21:20 Carbon Dioxide 26 mmol/L (22-29) 01/25/24 21:20 Anion Gap 15.0 (5-19) 01/25/24 21:20 BUN 10 mg/dL (6-20) 01/25/24 21:20 Creatinine 1.0 mg/dL (0.5-0.9) H 01/25/24 21:20 GFR Calculation 61.4 mL/min (90-130) L 01/25/24 21:20 Glucose 134 mg/dL (65-115) H 01/25/24 21:20 Calculated Osmolality 291 mOsm/kg (285-295) 01/25/24 21:20 Calcium 8.9 mg/dL (8.5-10.5) 01/25/24 21:20 Total Bilirubin 0.3 mg/dL (0.15-1.2) 01/25/24 21:20 AST 41 U/L (0-32) H 01/25/24 21:20 ALT 44 U/L (0-33) H 01/25/24 21:20 Alkaline Phosphatase 100 U/L (35-105) 01/25/24 21:20 Troponin T Baseline < 6 ng/L (0-10) 01/25/24 21:20 Troponin T 120 Minute 6.00 ng/L (0-10) 01/25/24 23:35 Delta Troponin T 0.03644 ABS# (0-10) 01/25/24 23:35 Total Protein 7.7 g/dL (6.6-8.7) 01/25/24 21:20 Albumin 4.4 g/dL (3.5-5.2) 01/25/24 21:20 Globulin 3.3 g/dL (1.3-4.6) 01/25/24 21:20 Lipase 41 U/L (13-60) 01/25/24 21:20 All radiology interpretation(s) finalized by discharge Discharge Plan Discharge Patient Disposition: Home Clinical Impression: Atypical chest pain, Costalchondritis Condition: Stable Prescriptions: No Action levothyroxine 200 mcg tablet 200 mcg PO DAILY Qty: 60 0RF Rx Instructions: take 200mcg and 50mcg total 250mcg daily levothyroxine 50 mcg tablet 50 mcg PO DAILY Qty: 60 0RF Rx Instructions: take 50mcg with 200mcg total 250mcg daily (DME) OneTouch Ultra Test Strip See Rx Instructions .ROUTE .COMPLEX Qty: 100 2RF Dose Instruction: USE DIRECTED TO test Rx Instructions: USE DIRECTED TO test (DME) pen needle, diabetic [TechLITE Pen Needle] 32 gauge x 5/32 needle See Rx Instructions .ROUTE .COMPLEX Qty: 100 2RF Dose Instruction: USE DIRECTED with victoza DAILY Rx Instructions: USE DIRECTED with victoza DAILY buspirone 10 mg tablet See Rx Instructions .ROUTE .COMPLEX Qty: 60 1RF Dose Instruction: TAKE ONE TABLET BY MOUTH TWICE DAILY Rx Instructions: TAKE ONE TABLET BY MOUTH TWICE DAILY fluoxetine 40 mg capsule See Rx Instructions .ROUTE .COMPLEX Qty: 30 1RF Dose Instruction: TAKE ONE CAPSULE BY MOUTH EVERY DAY Rx Instructions: TAKE ONE CAPSULE BY MOUTH EVERY DAY lamotrigine 25 mg tablet See Rx Instructions .ROUTE .COMPLEX Qty: 60 1RF Dose Instruction: TAKE 1 TABLET BY MOUTH TWICE DAILY Rx Instructions: TAKE 1 TABLET BY MOUTH TWICE DAILY lamotrigine 150 mg tablet See Rx Instructions .ROUTE .COMPLEX Qty: 60 1RF Dose Instruction: TAKE 1 TABLET BY MOUTH TWICE DAILY with 25mg DOSE Rx Instructions: TAKE 1 TABLET BY MOUTH TWICE DAILY with 25mg DOSE montelukast 10 mg tablet See Rx Instructions .ROUTE .COMPLEX Qty: 30 1RF Dose Instruction: TAKE ONE TABLET BY MOUTH DAILY Rx Instructions: TAKE ONE TABLET BY MOUTH DAILY valsartan 80 mg tablet See Rx Instructions .ROUTE .COMPLEX Qty: 30 1RF Dose Instruction: TAKE ONE TABLET BY MOUTH DAILY Rx Instructions: TAKE ONE TABLET BY MOUTH DAILY liraglutide [Victoza 3-Nick] 0.6 mg/0.1 mL (18 mg/3 mL) pen injector See Rx Instructions .ROUTE .COMPLEX Qty: 9 2RF Dose Instruction: INJECT 1.2MG (0.2ML) SUBCUTANEOUSLY EVERY DAY Rx Instructions: INJECT 1.2MG (0.2ML) SUBCUTANEOUSLY EVERY DAY Os-Jack 500 + D3 500 mg-5 mcg (200 unit) tablet 1 tab PO BID Qty: 60 5RF Discharge Orders: Discharge ED (Routine); Ordered 01/26/24 Ordered By: Ryland Pisano Patient Instructions: Costochondritis (ED), Chest Pain - Chest Wall Activity Restrictions/Additional Instructions: Your evaluation ER did not show any acute cardiac cause of your chest pain. Is felt to be noncardiac in nature or costochondritis which is irritation of the joints of your ribs and sternum. Please take [id number] ibuprofen as needed and follow-up with your family practice physician within the next 7 days for further evaluation and treatment. Coding Level of Care Code ED Strategic Planning Specialist for Eliud Fuentes
[2024-01-25 21:25] LABS: Basophils % 0.6 %; Eosinophils # 0.2 10^3/uL (0.0-0.8); Eosinophils % 2.4 %; Lymphocytes # 1.9 10^3/uL (0.8-4.8); Lymphocytes % 29.4 %; Mean Corpuscular HGB Conc 30.9 g/dL (30-55); Mean Corpuscular Hemoglobin 26.8 pg (27-33); Mean Corpuscular Volume 86.7 fl (85-98); Mean Platelet Volume 9.2 fL (7.4-10.4); Monocytes # 0.4 10^3/uL (0.2-0.9); Monocytes % 5.9 %; Neutrophils # 3.88 10^3/uL (1.8-7.7); Neutrophils % 61.5 %; Nucleated Red Blood Cells % 0 %; Platelet Count 318 10^3/cmm (157-399); Red Blood Count 4.96 10^6/uL (3.85-5.65); Red Cell Distribution Width 14.4 % (12.1-15.1)
[2024-01-25 21:42] LABS: Troponin(5th) Baseline < 6 ng/L (0-10)
[2024-01-25 21:44] LABS: Alanine Aminotransferase 44 U/L (0-33); Albumin Level 4.4 g/dL (3.5-5.2); Alkaline Phosphatase 100 U/L (35-105); Aspartate Amino Transferase 41 U/L (0-32); Blood Urea Nitrogen 10 mg/dL (6-20); Calcium 8.9 mg/dL (8.5-10.5); Carbon Dioxide 26 mmol/L (22-29); Chloride 103 mmol/L (98-107); Creatinine Clr Calc Pharmacy 106.7307; Globulin 3.3 g/dL (1.3-4.6); Glomerular Filtration Rate 61.4 mL/min (90-130); Glucose 134 mg/dL (65-115); Lipase 41 U/L (13-60); Osmolality Calculated 291 mOsm/kg (285-295); Sodium 140 mmol/L (136-145); Total Bilirubin 0.3 mg/dL (0.15-1.2); Total Protein 7.7 g/dL (6.6-8.7)
--- NOTE | 2024-01-25 22:48 | ECG_ITS ---
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
[2024-01-26] VITALS: BP 118/78; PULSE 80; RESP 18; O2SAT 99
[2024-01-26 00:01] LABS: Troponin 5 2HR Delta 0.00001 ABS# (0-10)
[2024-01-26 00:30] VITALS: BP 118/85; PULSE 77; RESP 16; O2SAT 98
[2024-01-26 01:19] VITALS: BP 122/79; PULSE 77; O2SAT 98
== END 2024-01-26 01:23 | disposition home or self-care (01) ==
PROVIDERS: Emergency Medicine; Emergency Provider Emergency Medicine
DX: R07.89 Other chest pain (principal); M94.0 Chondrocostal junction syndrome [Tietze]; I10 Essential (primary) hypertension; K21.9 Gastro-esophageal reflux disease without esophagitis
CPT/HCPCS: 71045; 80053; 83690; 84484; 85025; 93005; 99285

== ENCOUNTER → 2024-06-23 13:31 | Outpatient (BNVA) | payer MEDICAID, SELFPAY | PROVIDERS: PCP Family Medicine; Visit Provider Internal Medicine | DX: C73 Malignant neoplasm of thyroid gland (principal); E55.9 Vitamin D deficiency, unspecified; E03.9 Hypothyroidism, unspecified | CPT/HCPCS: 36415; 82306; 82310; 83970; 84432; 84439; 84443; 86800 ==

== ENCOUNTER 2024-10-18 12:04 | Outpatient (CLI) | payer MEDICAID, SELFPAY ==
--- NOTE | 2024-10-18 12:15 | US_ITS ---
WS: [id number] THYROID ULTRASOUND REASON FOR EXAM: see below TECHNIQUE: Grayscale and Doppler ultrasound examination of the thyroid gland. FINDINGS: Previous thyroidectomy with no remnant thyroid identified. Normal submandibular glands. No neck adenopathy or other mass. US/US thyroid [id number] IMPRESSION: Status post thyroidectomy with no abnormality identified.
== END 2024-10-18 12:05 | disposition home or self-care (01) ==
LOC: RAD 12:06
PROVIDERS: PCP Family Medicine; Visit Provider Internal Medicine
DX: C73 Malignant neoplasm of thyroid gland (principal); E55.9 Vitamin D deficiency, unspecified; E03.9 Hypothyroidism, unspecified
CPT/HCPCS: 36415; 76536; 82306; 84432; 86800

== ENCOUNTER 2024-11-09 07:35 | Outpatient (CLI) | payer MEDICAID, SELFPAY ==
[2024-11-09 08:52] LABS: Free T4 Free Thyroxine 0.92 ng/dL (0.82-1.77); Thyroid Stimulating Hormone 8.89 uIU/mL (0.27-4.20)
== END 2024-11-09 07:36 | disposition home or self-care (01) ==
PROVIDERS: PCP Family Medicine; Visit Provider Internal Medicine
DX: E03.9 Hypothyroidism, unspecified (principal); C73 Malignant neoplasm of thyroid gland; E55.9 Vitamin D deficiency, unspecified
CPT/HCPCS: 36415; 84439; 84443; 99214

== ENCOUNTER 2024-12-20 11:42 | Outpatient (CLI) | payer MEDICAID, SELFPAY | END 2024-12-20 11:43 | disposition home or self-care (01) | LOC: LAB 11:42 | PROVIDERS: PCP Family Medicine; Visit Provider Internal Medicine | DX: E03.9 Hypothyroidism, unspecified (principal); E55.9 Vitamin D deficiency, unspecified; C73 Malignant neoplasm of thyroid gland | CPT/HCPCS: 36415; 84432; 86800 ==

== ENCOUNTER 2025-01-01 20:04 | Emergency (ER) | payer MEDICAID, SELFPAY ==
--- OUTSIDE RECORDS SUMMARY | 2025-01-01 20:09 | XMS_ITS | Clinical Summary ---
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 180 Tablet 05/03/19 Active lamoTRIgine (LaMICtal) 25 mg tablet Take 1 Tablet (25 mg) by mouth 2 times daily. Take with 150 mg to equal 175 mg 90 Tablet 05/03/19 Active Additional Information Patient taking differently:25 mg OralDAILY, Take with 150 mg to equal 175 mg, Reported on 11/11/2024 lamoTRIgine (LaMICtal) 150 mg tablet Take 1 Tablet (150 mg) by mouth daily. Take with 25 mg to equal 175 mg 90 Tablet 05/03/19 Active levothyroxine 50 mcg tablet Take 1 Tablet (50 mcg) by mouth daily. Take with 200 mcg to equal 250 mcg 90 Tablet 05/03/19 Active levothyroxine 200 mcg tablet Take 1 Tablet (200 mcg) by mouth daily. Take with 50 mcg to equal 250 mcg 90 Tablet 05/03/19 Active montelukast (SINGULAIR) 10 mg tablet Take 1 Tablet (10 mg) by mouth daily. 90 Tablet 05/03/19 Active valsartan (DIOVAN) 80 mg tablet Take 1 Tablet (80 mg) by mouth daily. 90 Tablet 05/03/19 Active Oyster Shell Calcium-Vit D3 500 mg-5 mcg (200 unit) tablet Take 1 Tablet by mouth 2 times daily. 180 Tablet 3 05/03/19 25 Active TechLITE Pen Needle 32 gauge x Needle USE DIRECTED with victoza DAILY 05/30/19 25 Active PARoxetine HCl (PaxiL) 40 mg tabletIndicati ons:Mild episode of recurrent major depressive disorder,Gener alized anxiety disorder Take 1 Tablet (40 mg) by mouth daily. 90 Tablet 3 06/02/19 25 Active traMADol (Ultram) 50 mg tabletIndicati ons:Chronic midline low back pain without sciatica Take 1 Tablet (50 mg) by mouth every 8 hours as needed for Pain. 90 Tablet 5 10/01/19 25 Active Phentermine 30 mg CapsuleIndicat ions:Morbid obesity with BMI of 50.0-59.9, adult (CMS/HCC) Take 30 mg by mouth daily. 30 Capsule 2 12/27/19 25 Active Phentermine 15 mg CapsuleIndicat ions:Morbid obesity with BMI of 50.0-59.9, adult (CMS/HCC) Take 1 Capsule (15 mg) by mouth daily. 30 Capsule 2 11/12/19 25 025 Discontinued Active Problems Problem Noted Date Diagnosed Date Chronic midline low back pain without sciatica 0 06/02/2024 Chronic pain of both knees 06/02/2024 Mild episode of recurrent major depressive disor randee 05/03/2024 Generalized anxiety disorder 05/03/2024 Postoperative hypothyroidism 05/03/2024 Overview (05/03/2024): S/p thyroidectomy due to cancer Prediabetes 05/03/2024 Benign hypertension 05/03/2024 Encounters Date Type Department Care Team Description 11/11/[address] [phone] Jolanta Linn MD 11/11/2024 Orders Only [address] [phone] Jolanta Linn MD 11/10/2024 Refill [facility] [address] [phone] Jolanta Linn MD 11/08/2024 External Device Data [facility] ABSTRACTION Provider, Abstract 10/19/2024 External Device Data [facility] ABSTRACTION Provider, Abstract 10/19/2024 External Device Data [facility] ABSTRACTION Provider, Abstract from Last 3 Months Family History Medical History Relation Name Comments Diabetes Father Hypertension Father Diabetes Mother Hypertension Mother Relation Name Status Comments Father Mother Alive Social History Tobacco Use Types Packs/Day Years Used Date Smoking Tobacco: Never Smokeless Tobacco: Never Tobacco Cessation:Counseling Given: Not Answered Alcohol Use Standard Drinks/Week Comments Not Currently 0 (1 standard drink = 0.6 oz pur e alcohol) Comments No Sex and Gender Information Value Date Recorded Sex Assigned at Female 04/25/2024 1:27 PM DISTRICT 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 EXECUTIVE Legal Sex Female 11:53 AM DISTRICT SCOUT EXECUTIVE Gender Identity Female 04/25/2024 1:27 PM DISTRICT SCOUT EXECUTIVE Sexual Orientation Straight 04/25/2024 1: 27 PM DISTRICT SCOUT EXECUTIVE Last Filed Vital Signs Vital Sign Reading Time Taken Comments Blood Pressure 128/80 06/02/2024 8:06 AM DISTRICT SCOUT EXECUTIVE Pulse 100 06/02/2024 8:06 AM DISTRICT SCOUT EXECUTIVE Temperature 36.8 C (98.2 F) 06/02/2024 8:06 AM DISTRICT SCOUT EXECUTIVE Respiratory Rate 18 06/02/2024 8:06 AM DISTRICT SCOUT EXECUTIVE Oxygen Saturation 99% 06/02/2024 8:06 AM DISTRICT SCOUT EXECUTIVE Inhaled Oxygen Concentration - - Weight 147.1 kg (324 lb 3.2 oz) 06/02/2024 8:06 AM DISTRICT SCOUT EXECUTIVE Height 160 cm (5' 3 ) 06/02/2024 8:06 AM DISTRICT SCOUT EXECUTIVE Body Mass Index 57.43 06/02/2024 8:06 AM DISTRICT SCOUT EXECUTIVE Plan of Treatment Upcoming Encounters Date Type Department Care Team (Late st Contact Info) Description 01/13/2025 2:20 PM CDT Office Visit [facility] [address] [phone] Jolanta Linn MD [address] [phone] Health Maintenance Due Date Last Done Comments DTAP/TDAP/TD VACCINES (1 - Tdap) 09/21/2002 HEPATITIS B VACCINES (1 of 3 - 19+ 3-dose series) 09/21/2002 Preventative Visit-Managed Medicaid 09/21/2002 HPV/Cotest (21-29) 09/21/2004 HPV VACCINES (1 - 3-dose SCDM series) 09/21/2010 CERVICAL CANCER SCREENING 09/21/2013 HPV/Cotest (30-65) 09/21/2013 PAP SMEAR 09/21/2013 BREAST CANCER SCREENING 2023 INFLUENZA VACCINE (#1) 2024 COVID-19 Vaccine ( season) 2024, 10/19/2020 Pre-Diabetes and Diabetes Screening 05/03/202705/03 Procedures Procedure Name Priority Date/Time Associated Diagnosis Comments HEMOGLOBIN A1C Routine 05/03/2024 11:15 AM DISTRICT SCOUT EXECUTIVE Prediabetes from Last 3 Months or Most Recently Relevant to Health Maintenance Results * (ABNORMAL) HEMOGLOBIN A1C (05/03/2024 11:15 AM DISTRICT SCOUT EXECUTIVE) HEMOGLOBIN A1C 6.3(H) <5.7 % of total Hgb [facility] Comment: For someone without known diabetes, a hemoglobin A1c value between 5.7% and 6.4% is consistent with prediabetes and should be confirmed with a follow-up test. For someone with known diabetes, a value <7% indicates that their diabetes is well controlled. A1c targets should be individualized based on duration of diabetes, age, comorbid conditions, and other considerations. This assay result is consistent with an increased risk of diabetes. Currently, no consensus exists regarding use of hemoglobin A1c for diagnosis of diabetes for children. ESTIMATED AVERAGE GLUCOSE (MG/DL) 134 mg/dL [facility] ESTIMATED AVERAGE GLUCOSE (MMOL/L) 7.4 mmol/L [facility] Comment: FASTING:YES FASTING: YES Test Performed at: [facility] [address], [place] [address] Mendoza Velarde MD Blood 05/03/2024 11:1 5 AM DISTRICT SCOUT EXECUTIVE 05/03/2024 11:15 AM DISTRICT SCOUT EXECUTIVE Jolanta Linn MD CHEMISTRY ORDERABLES Final Result [facility] [phone] [facility] [address] [place] [phone] from Last 3 Months or Most Recently Relevant to Health Maintenance [place] [address] [place] [address] [employer] MEDICA[employer] Care Teams Weaving Machine Operator Relationship Specialty Start Date End Date Jolanta Linn MD [address] [place] [phone] PCP - General Family Practice 05/03/24
--- OUTSIDE RECORDS SUMMARY | 2025-01-01 20:09 | XMS_ITS | Patient Health Record ---
Author Organization [facility] Address [address] [place] [address] Care Team Providers Care Car Lot Attendant Name Role Phone Zarina Dupont Primary Care Provider [phone] [address] Chanel Unavailable [phone] Allergies Allergen (clinical drug ingredient) Drug/Non Drug Allergy documented on EMR Reaction Allergy Type Onset Date Status duloxetine Cymbalta vomiting, diarrhea Drug Allergy Active Reason For Referral No Information Medications Medication SIG (Take, Route, Frequency, Duration) Notes Start Date End Date Status OneTouch Ultra - Strip USE DIRECTED T O TEST; Duration: 30 Active busPIRone HCl 10 mg Tablet TAKE 1 TABLET BY MOUTH TWO TIMES DAILY; Duration: 30 Active lamoTRIgine 150 mg Tablet TAKE ONE TABLE T BY MOUTH TWICE DAILY; Duration: 30 Active Vitamin D (Ergocalciferol) 1.25 MG (32888 UT) Capsule TAKE 1 CAPSULE BY MOUTH EVERY DAY; Duration: 26 Active FLUoxetine HCl 40 mg Capsule TAKE ONE CA PSULE BY MOUTH EVERY DAY; Duration: 30 Active metFORMIN HCl 500 mg Tablet TAKE 1 TABLE T BY MOUTH TWO TIMES DAILY WITH A MEAL; Duration: 30 Active Montelukast Sodium 10 MG Tablet 1 tablet Orally Once a day; Duration: 30 day(s) 08/27/2021 Active lamoTRIgine 25 mg Tablet TAKE ONE TABLET BY MOUTH TWICE DAILY *take with 150mg tablet*; Duration: 30 Active Omeprazole 20 MG Capsule Delayed Release 1 capsule 30 minutes before morning meal Orally Once a day; Duration: 30 days 07/22/2021 Active Blood Glucose Monitor System w/Device Kit as directed in vitro daily; Duration: 30 days 03/05/2021 Active Valsartan 80 mg Tablet TAKE 1 TABLET BY MOUTH EVERY DAY; Duration: 30 Active Lancet Device - Miscellaneous as directed in vitro daily; Duration: 30 days 03/05/2021 Active Social History Tobacco Use: Social History Observation Description Date Details (start date - stop date) Never Smoker NA - NA Social History Depression Screening Social Info Question Answer Notes PHQ-9 Little interest or p rogelio in doing things More than half the days Feeling down, depressed, or hopeless More than h yolanda the days Trouble falling or staying a sleep, or sleeping too much Nearly every day Feeling tired or having little energy Nearly cornelius day Poor appetite or overeating More than half the d ays Feeling bad about yourself, or that you are a failure, or have let yourself or your family down Nearly every day Trouble concentrating on thi ngs, such as reading the newspaper or watching television More than half the days Moving or speaking so slowly that other people could have noticed. Or the opposite ? being so fidgety or restless that you have been moving around a lot more than usual Not at all Thoughts that you would be b vinh off , or of hurting yourself in some way More than half the days (Consider Suicide Assessment Risk) Total Score 19 Interpretation Moderately severe depression Drugs/Alcohol: Social Info Question Answer Notes Alcohol Screen (Audit-C) Did you have a drink containing alcohol in the past year? Yes How often did you have a drink containing alcohol in the past year? Monthly or less (1 point) How many drinks did you have on a typical day when you were drinking in the past year? 1 or 2 drinks (0 point) How often did you have 6 or more drinks on one occasion in the past year? Never (0 point) Points 1 Interpretation Negative Drugs Have you used drugs other than those for medical reasons in the past 12 months? No Household: Social Info Question Answer Notes Household Marital status: Tobacco Use: Social Info Question Answer Notes xTobacco Use/Smoking Are you a nonsmoker Additional Details Category Social Info Options Details Drugs/Alcohol: Do you smoke marijuana? De nies Section Notes: PHQ-9: 05/21/2021 PHQ-9: 05/21/2021 PHQ-9: 05/21/2021 PHQ-9: 05/21/2021 PHQ-9: 08/08/2020 PHQ-9: 08/08/2020 PHQ-9: 08/08/2020 PHQ-9: 08/08/2020 PHQ-9: 08/08/2020 PHQ-9: 07/10/20 PHQ-9: 07/10/20 Problems Problem Type SNOMED Code ICD Code Onset Dates Problem Status W/U Status Risk Notes Problem Generalized anxiety disorder (60015436) Generalized anxiety disorder (F41.1) Active confirmed Problem Morbid obesity (821307452) Morbidly obese (E66.01) Active confirmed Problem Moderately severe depression (001434041) Moderately severe depression (F32.2) Active confirmed Problem Gastroesophageal reflux disease (024894587) Gastroesophageal reflux disease, unspecified whether esophagitis present (K21.9) Active confirmed Problem Extreme obesity with alveolar hypoventilation (732596247) Obesity hypoventilation syndrome (E66.2) Inactive confirmed Problem Cirrhosis of liver (11723224) Other cirrhosis of liver (K74.69) Inactive confirmed Problem Seasonal allergy (759136669) Seasonal allergies (J30.2) Active confirmed Problem Mood disorder (34703195) Mood disorder (F39) Active confirmed Problem Insomnia disorder related to another mental disorder (47678706) Psychophysiological insomnia (F51.04) Active confirmed Problem Obstructive sleep apnea (49983064) Obstructive sleep apnea (G47.33) Active confirmed Problem Vitamin D deficiency (63839887) Vitamin D deficiency (E55.9) Active confirmed Problem Essential hypertension (86657818) Essential hypertension (I10) Active confirmed Problem Impaired fasting glucose (482053894) Impaired fasting glucose (R73.01) Active confirmed Problem Metabolic syndrome (469416855) Metabolic syndrome (E88.81) Active confirmed Problem Viral hepatitis type C (08782729) Unspecified viral hepatitis C without hepatic coma (B19.20) Active confirmed Plan Of Treatment No Information Insurance Providers Payer Name Payer Address Payer Phone Subscriber Number Group Number Insured Name Patient Relationship to Insured Coverage Start Date Coverage End Date [facility] Medicaid Replacement [address] [facility] [place] [phone] [id number] Estephania Chanel Self - patient is the insured Medications Administered Medication Instructions Date of Administration Dosage Notes dexAMETHasone 06/18/2021 30 mL Medical (General) History Medical History History ICD Code Depression Anxiety Morbid obesity due to excess calories E6 6.01 Obstructive sleep apnea G47.33 Insomnia G47.00 Morbid (severe) obesity with alveolar hy poventilation E66.2 Elevated LFTs R94.5 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
[2025-01-01 20:12] VITALS: BP 136/84; PULSE 94; RESP 18; TEMP 37.1; O2SAT 100; BMI 55.3
[2025-01-01] MEDS: tetanus-dipt-pertussis 0.5 mL SDV IM (21:28)
--- NOTE | 2025-01-01 22:03 | ED_ITS ---
Documented by User: MARBIN Michel 01/01/25 22:06 HPI - Animal Bite General: Chief Complaint: Animal Bite Stated Complaint: Bit by an outside cat Time Seen by Provider: 01/01/25 20:42 Source: patient Mode of arrival: ambulatory Limitations: no limitations History of Present Illness: Patient is a 39-year-old female who presents the emergency department complaining of a cat bite to her right hand and left inner arm. States that this was her personal cat, however it is an outdoor cat and vaccinations are up-to-date. She does note that it is contained and able to be monitored, this was not a provoked attack, but states overall the patient has not been displaying concerning signs, such as no paralysis, excessive aggressiveness, or hypersalivation. Tetanus not up-to-date. MD complaint: animal bite Animal: cat Mechanism: bite Location - Extremities: Left: arm and Right: hand Associated symptoms: Deny chills, fever(s) or headache(s) Related Data Previous Rx's ?Medication ?Instructions ?Recorded calcium 500 mg (as 1 tab PO BID #60 tabs carbonate)-vitamin D3 5 mcg (200 unit) tablet (Os-Jack 500 + D3) blood sugar diagnostic (OneTouch #100 strips 08/24/23 Ultra Test strips) pen needle, diabetic 32 gauge x #100 ea 09/04/23 (TechLITE Pen Needle) liraglutide 0.6 mg/0.1 mL (18 mg/3 See Rx Instructions .Route 01/04/24 mL) subcutaneous pen injector .COMPLEX #9 mL (Victoza 3-Nick) buspirone 10 mg tablet See Rx Instructions .Route 1 05/15/23 .COMPLEX #60 tabs fluoxetine 40 mg capsule See Rx Instructions .Route 1 05/15/23 .COMPLEX #30 caps lamotrigine 150 mg tablet See Rx Instructions .Route 1 05/15/23 .COMPLEX #60 tabs lamotrigine 25 mg tablet See Rx Instructions .Route 1 05/15/23 .COMPLEX #60 tabs montelukast 10 mg tablet See Rx Instructions .Route 1 05/15/23 .COMPLEX #30 tabs valsartan 80 mg tablet See Rx Instructions .Route 1 05/15/23 .COMPLEX #30 tabs levothyroxine 25 mcg tablet 25 mcg PO DAILY #90 tabs 0 8/07/25 (Synthroid) levothyroxine 300 mcg tablet 300 mcg PO DAILY #90 tabs 11/10/24 (Synthroid) amoxicillin 875 mg-potassium 1 tab PO BID 5 days #10 t abs 01/01/25 clavulanate 125 mg tablet Allergies Allergy/AdvReac Type Severity Reaction Status Date / Time No Known Allergies Allergy Verified 11/09/24 08:01 Review of Systems General: Reports: 10 or more systems reviewed and unremarkable except in HPI and below Const: Denies: fever(s) or chills Card: Denies: chest pain Resp: Denies: dyspnea GI: Denies: abdominal pain, nausea, vomiting or diarrhea Musc: Denies: extremity pain or joint pain Skin/Breast: Reports: new lesions (Cat bite); Denies: rash, skin pain or skin tenderness Neuro: Denies: headache(s) PFSH ED PFSH: Medical History Seasonal allergies GERD (gastroesophageal reflux disease) Type 2 diabetes mellitus, without long-term current use of insulin Benign essential HTN Bipolar 1 disorder Surgical History Hx of thyroidectomy H/O section x2 Family History Mother Diabetes Hypertension Father Hypertension Heart disease Social History Smoking and tobacco/nicotine status: unknown if used tobacco/nicotine Alcohol intake: never Substance/Drug Use: never Current gender identity: Female Female Reproductive History: Spontaneous abortions: No Physical Exam Const: COMMON NORMALS: no acute distress, average body habitus, patient oriented x3, no limitations, healthy appearing, alert and well nourished HENMT: COMMON NORMALS: normocephalic and atraumatic HEAD & SCALP: normocephalic and atraumatic Neck/C-Spine: COMMON NORMALS: full ROM, no lymphadenopathy, supple and no meningeal signs Resp: COMMON NORMALS: normal respiratory effort, No use of accessory muscles and clear to auscultation bilaterally AUSCULTATION: clear to auscultation bilaterally Cardio: COMMON NORMALS: regular rate and regular rhythm RATE: regular rate RHYTHM: regular rhythm Extremity: COMMON NORMALS: full ROM and capillary refill normal Neuro: COMMON NORMALS: patient oriented x3 SENSORIUM/ORIENTATION: Yes alert MENINGEAL SIGNS: Yes no meningeal signs Skin: COMMON NORMALS: turgor normal NARRATIVE SKIN EXAM: 2 small puncture wounds to right hand. 4 scattered abrasions to left inner arm. No active bleeding, no open/gaping wounds. GENERAL SKIN EXAM: turgor normal Course Vital Signs: Vital signs: Vital Signs Temperature 98.8 F 01/01/25 20:12 Pulse Rate 94 01/01/25 20:12 Respiratory Rate 18 01/01/25 20:12 Blood Pressure 136/84 01/01/25 20:12 Pulse Oximetry 100 01/01/25 20:12 MDM - Animal Bite Medical Decision Making This patient owns the cat that bit her right hand and scratched her left inner arm, at vaccination is not up-to-date but it is contained and able to be monitored. After discussion, we decided on no rabies vaccination prophylaxis at this time and instead will monitor the cat for any signs or symptoms that would warrant return to the emergency department for rabies shot. Her tetanus is updated today and she will be started on prophylactic Augmentin. No other wound care or workup necessary in the ED at this time she will be allowed discharge home. No radiology studies performed this visit Discharge Plan Discharge Patient Disposition: Home Clinical Impression: Cat bite Qualifiers: Encounter type: initial encounter Qualified Code(s): W55.01XA - Bitten by cat, initial encounter Condition: Stable Prescriptions: New amoxicillin-pot clavulanate 875-125 mg tablet 1 tab PO BID 5 Days Qty: 10 0RF No Action (DME) OneTouch Ultra Test Strip See Rx Instructions .ROUTE .COMPLEX Qty: 100 2RF Dose Instruction: USE DIRECTED TO test Rx Instructions: USE DIRECTED TO test (DME) pen needle, diabetic [TechLITE Pen Needle] 32 gauge x 5/32 needle See Rx Instructions .ROUTE .COMPLEX Qty: 100 2RF Dose Instruction: USE DIRECTED with victoza DAILY Rx Instructions: USE DIRECTED with victoza DAILY liraglutide [Victoza 3-Nick] 0.6 mg/0.1 mL (18 mg/3 mL) pen injector See Rx Instructions .ROUTE .COMPLEX Qty: 9 2RF Dose Instruction: INJECT 1.2MG (0.2ML) SUBCUTANEOUSLY EVERY DAY Rx Instructions: INJECT 1.2MG (0.2ML) SUBCUTANEOUSLY EVERY DAY lamotrigine 150 mg tablet See Rx Instructions .ROUTE .COMPLEX Qty: 60 0RF Dose Instruction: TAKE 1 TABLET BY MOUTH TWICE DAILY with 25mg DOSE Rx Instructions: TAKE 1 TABLET BY MOUTH TWICE DAILY with 25mg DOSE fluoxetine 40 mg capsule See Rx Instructions .ROUTE .COMPLEX Qty: 30 0RF Dose Instruction: TAKE ONE CAPSULE BY MOUTH EVERY DAY Rx Instructions: TAKE ONE CAPSULE BY MOUTH EVERY DAY montelukast 10 mg tablet See Rx Instructions .ROUTE .COMPLEX Qty: 30 0RF Dose Instruction: TAKE ONE TABLET BY MOUTH DAILY Rx Instructions: TAKE ONE TABLET BY MOUTH DAILY buspirone 10 mg tablet See Rx Instructions .ROUTE .COMPLEX Qty: 60 0RF Dose Instruction: TAKE ONE TABLET BY MOUTH TWICE DAILY Rx Instructions: TAKE ONE TABLET BY MOUTH TWICE DAILY lamotrigine 25 mg tablet See Rx Instructions .ROUTE .COMPLEX Qty: 60 0RF Dose Instruction: TAKE 1 TABLET BY MOUTH TWICE DAILY Rx Instructions: TAKE 1 TABLET BY MOUTH TWICE DAILY valsartan 80 mg tablet See Rx Instructions .ROUTE .COMPLEX Qty: 30 0RF Dose Instruction: TAKE ONE TABLET BY MOUTH DAILY Rx Instructions: TAKE ONE TABLET BY MOUTH DAILY levothyroxine [Synthroid] 300 mcg tablet 300 mcg PO DAILY Qty: 90 0RF Rx Instructions: take with 25mcg tablet and stop all other dosages of this medication levothyroxine [Synthroid] 25 mcg tablet 25 mcg PO DAILY Qty: 90 0RF Rx Instructions: Take with 300 mcg tablet. Stop all other dosages of this medication Os-Jack 500 + D3 500 mg-5 mcg (200 unit) tablet 1 tab PO BID Qty: 60 5RF Discharge Orders: Discharge ED (Routine); Ordered 01/01/25 Ordered By: Shekhar Chahal Referrals: Jolanta Linn MD [Primary Care Provider, Family Practice] Patient Instructions: Patient Portal & Terra Instructions Activity Restrictions/Additional Instructions: Cat Bite Discharge Instructions Diagnosis: Cat bite to extremity from patient's own cat; cat's vaccinations not up to date but animal is available for monitoring. Tetanus vaccination updated. Wound Care: - The wound was thoroughly irrigated and debrided in the ED. Advise continued gentle cleansing with soap and running water at home, at least once daily, to reduce infection risk. - Avoid occlusive dressings unless otherwise indicated; keep the wound open to air if possible, unless otherwise directed. Antibiotic Therapy: - Amoxicillin-clavulanate (Augmentin) is prescribed as first-line prophylaxis for cat bites due to the high risk of infection, particularly with Pasteurella multocida and anaerobes. - Dosage: Take as directed, typically 875 mg/125 mg orally twice daily for 5 days. Complete the full course even if symptoms improve. - If allergic to penicillins, alternatives include doxycycline or a fluoroquinolone plus anaerobic coverage (e.g., clindamycin). Tetanus Prophylaxis: - Tetanus vaccination was updated per CDC and Infectious Diseases Society [place] recommendations for contaminated wounds. Rabies Risk Assessment: - The risk of rabies transmission from domestic cats is low, but not negligible if the animal's vaccination status is unknown. - The cat is available for monitoring. Per CDC and IDSA guidelines, observe the animal for 10 days for signs of rabies (e.g., abnormal behavior, excessive salivation, paralysis). - If the cat develops concerning symptoms or dies within the observation period, notify public health authorities immediately for further rabies evaluation. Return Precautions: - Advise prompt return for any of the following: - Increasing pain, redness, swelling, warmth, or purulent drainage at the wound site (signs of infection). - Fever, chills, malaise, or lymphangitis. - Loss of function, numbness, or discoloration of the affected limb. - Systemic symptoms (e.g., confusion, hypotension). - Any signs of allergic reaction to antibiotics (rash, difficulty breathing). - If the cat develops abnormal behavior or dies during the 10-day observation period. Follow-Up: - Routine follow-up in 48?72 hours is recommended to assess for early signs of infection or complications, as cat bites have a high risk of delayed infection. - If wound infection develops, obtain wound cultures and adjust antibiotics per susceptibility. Additional Notes: - Cat bites are associated with a higher risk of infection than dog bites due to deep puncture wounds and oral fuad. - Most infections present within 12?24 hours; close monitoring is essential. - No primary closure was performed due to risk of infection; delayed closure may be considered if no infection develops after several days. Patient Education: - Avoid contact with the cat until the wound has healed. - Educate on signs of infection and rabies. - Encourage completion of the antibiotic course and adherence to wound care instructions. Legal/Reporting: - Animal bites may be reportable to local health authorities depending on jurisdiction Print Language: Citizen [place] Coding Level of Care Code ED Pediatric Hospitalist for Eliud Fwd Documented by User: Munir Ritchie, DO 01/01/25 23:57 HPI - Animal Bite General: Chief Complaint: Animal Bite Stated Complaint: Bit by an outside cat Time Seen by Provider: 01/01/25 20:42 Related Data Previous Rx's ?Medication ?Instructions ?Recorded calcium 500 mg (as 1 tab PO BID #60 tabs carbonate)-vitamin D3 5 mcg (200 unit) tablet (Os-Jack 500 + D3) blood sugar diagnostic (WozityouTouch #100 strips 08/24/23 Ultra Test strips) pen needle, diabetic 32 gauge x #100 ea 09/04/2332 (TechLITE Pen Needle) liraglutide 0.6 mg/0.1 mL (18 mg/3 See Rx Instructions .Route 01/04/24 mL) subcutaneous pen injector .COMPLEX #9 mL (Victoza 3-Nick) buspirone 10 mg tablet See Rx Instructions .Route 1 05/15/23 .COMPLEX #60 tabs fluoxetine 40 mg capsule See Rx Instructions .Route 1 05/15/23 .COMPLEX #30 caps lamotrigine 150 mg tablet See Rx Instructions .Route 1 05/15/23 .COMPLEX #60 tabs lamotrigine 25 mg tablet See Rx Instructions .Route 1 05/15/23 .COMPLEX #60 tabs montelukast 10 mg tablet See Rx Instructions .Route 1 05/15/23 .COMPLEX #30 tabs valsartan 80 mg tablet See Rx Instructions .Route 1 05/15/23 .COMPLEX #30 tabs levothyroxine 25 mcg tablet 25 mcg PO DAILY #90 tabs 0 11/10/24 (Synthroid) levothyroxine 300 mcg tablet 300 mcg PO DAILY #90 tabs 11/10/24 (Synthroid) amoxicillin 875 mg-potassium 1 tab PO BID 5 days #10 t abs 01/01/25 clavulanate 125 mg tablet Allergies Allergy/AdvReac Type Severity Reaction Status Date / Time No Known Allergies Allergy Verified 11/09/24 08:01 [facility] ED PFSH: Medical History Seasonal allergies GERD (gastroesophageal reflux disease) Type 2 diabetes mellitus, without long-term current use of insulin Benign essential HTN Bipolar 1 disorder Surgical History Hx of thyroidectomy H/O section x2 Family History Mother Diabetes Hypertension Father Hypertension Heart disease Social History Smoking and tobacco/nicotine status: unknown if used tobacco/nicotine Alcohol intake: never Substance/Drug Use: never Current gender identity: Female Course Vital Signs: Vital signs: Vital Signs Temperature 98.8 F 01/01/25 20:12 Pulse Rate 94 01/01/25 20:12 Respiratory Rate 18 01/01/25 20:12 Blood Pressure 136/84 01/01/25 20:12 Pulse Oximetry 100 01/01/25 20:12 MDM - Animal Bite Medical Decision Making This patient owns the cat that bit her right hand and scratched her left inner arm, at vaccination is not up-to-date but it is contained and able to be monitored. After discussion, we decided on no rabies vaccination prophylaxis at this time and instead will monitor the cat for any signs or symptoms that would warrant return to the emergency department for rabies shot. Her tetanus is updated today and she will be started on prophylactic Augmentin. No other wound care or workup necessary in the ED at this time she will be allowed discharge home. Patient was originally seen by Mr. Tirso PA-C. I agree with his history, evaluation, and treatment. Discharge Plan Discharge Patient Disposition: Home Clinical Impression: Cat bite Qualifiers: Encounter type: initial encounter Qualified Code(s): W55.01XA - Bitten by cat, initial encounter Condition: Stable Prescriptions: New amoxicillin-pot clavulanate 875-125 mg tablet 1 tab PO BID 5 Days Qty: 10 0RF No Action (DME) OneTouch Ultra Test Strip See Rx Instructions .ROUTE .COMPLEX Qty: 100 2RF Dose Instruction: USE DIRECTED TO test Rx Instructions: USE DIRECTED TO test (DME) pen needle, diabetic [TechLITE Pen Needle] 32 gauge x 5/32 needle See Rx Instructions .ROUTE .COMPLEX Qty: 100 2RF Dose Instruction: USE DIRECTED with victoza DAILY Rx Instructions: USE DIRECTED with victoza DAILY liraglutide [Victoza 3-Nick] 0.6 mg/0.1 mL (18 mg/3 mL) pen injector See Rx Instructions .ROUTE .COMPLEX Qty: 9 2RF Dose Instruction: INJECT 1.2MG (0.2ML) SUBCUTANEOUSLY EVERY DAY Rx Instructions: INJECT 1.2MG (0.2ML) SUBCUTANEOUSLY EVERY DAY lamotrigine 150 mg tablet See Rx Instructions .ROUTE .COMPLEX Qty: 60 0RF Dose Instruction: TAKE 1 TABLET BY MOUTH TWICE DAILY with 25mg DOSE Rx Instructions: TAKE 1 TABLET BY MOUTH TWICE DAILY with 25mg DOSE fluoxetine 40 mg capsule See Rx Instructions .ROUTE .COMPLEX Qty: 30 0RF Dose Instruction: TAKE ONE CAPSULE BY MOUTH EVERY DAY Rx Instructions: TAKE ONE CAPSULE BY MOUTH EVERY DAY montelukast 10 mg tablet See Rx Instructions .ROUTE .COMPLEX Qty: 30 0RF Dose Instruction: TAKE ONE TABLET BY MOUTH DAILY Rx Instructions: TAKE ONE TABLET BY MOUTH DAILY buspirone 10 mg tablet See Rx Instructions .ROUTE .COMPLEX Qty: 60 0RF Dose Instruction: TAKE ONE TABLET BY MOUTH TWICE DAILY Rx Instructions: TAKE ONE TABLET BY MOUTH TWICE DAILY lamotrigine 25 mg tablet See Rx Instructions .ROUTE .COMPLEX Qty: 60 0RF Dose Instruction: TAKE 1 TABLET BY MOUTH TWICE DAILY Rx Instructions: TAKE 1 TABLET BY MOUTH TWICE DAILY valsartan 80 mg tablet See Rx Instructions .ROUTE .COMPLEX Qty: 30 0RF Dose Instruction: TAKE ONE TABLET BY MOUTH DAILY Rx Instructions: TAKE ONE TABLET BY MOUTH DAILY levothyroxine [Synthroid] 300 mcg tablet 300 mcg PO DAILY Qty: 90 0RF Rx Instructions: take with 25mcg tablet and stop all other dosages of this medication levothyroxine [Synthroid] 25 mcg tablet 25 mcg PO DAILY Qty: 90 0RF Rx Instructions: Take with 300 mcg tablet. Stop all other dosages of this medication Os-Jack 500 + D3 500 mg-5 mcg (200 unit) tablet 1 tab PO BID Qty: 60 5RF Discharge Orders: Discharge ED (Routine); Ordered 01/01/25 Ordered By: Shekhar Chahal Referrals: Jolanta Linn MD [Primary Care Provider, [facility]] Patient Instructions: Patient Portal & Terra Instructions Activity Restrictions/Additional Instructions: Cat Bite Discharge Instructions Diagnosis: Cat bite to extremity from patient's own cat; cat's vaccinations not up to date but animal is available for monitoring. Tetanus vaccination updated. Wound Care: - The wound was thoroughly irrigated and debrided in the ED. Advise continued gentle cleansing with soap and running water at home, at least once daily, to reduce infection risk. - Avoid occlusive dressings unless otherwise indicated; keep the wound open to air if possible, unless otherwise directed. Antibiotic Therapy: - Amoxicillin-clavulanate (Augmentin) is prescribed as first-line prophylaxis for cat bites due to the high risk of infection, particularly with Pasteurella multocida and anaerobes. - Dosage: Take as directed, typically 875 mg/125 mg orally twice daily for 5 days. Complete the full course even if symptoms improve. - If allergic to penicillins, alternatives include doxycycline or a fluoroquinolone plus anaerobic coverage (e.g., clindamycin). Tetanus Prophylaxis: - Tetanus vaccination was updated per CDC and Infectious Diseases Society [place] recommendations for contaminated wounds. Rabies Risk Assessment: - The risk of rabies transmission from domestic cats is low, but not negligible if the animal's vaccination status is unknown. - The cat is available for monitoring. Per CDC and IDSA guidelines, observe the animal for 10 days for signs of rabies (e.g., abnormal behavior, excessive salivation, paralysis). - If the cat develops concerning symptoms or dies within the observation period, notify public health authorities immediately for further rabies evaluation. Return Precautions: - Advise prompt return for any of the following: - Increasing pain, redness, swelling, warmth, or purulent drainage at the wound site (signs of infection). - Fever, chills, malaise, or lymphangitis. - Loss of function, numbness, or discoloration of the affected limb. - Systemic symptoms (e.g., confusion, hypotension). - Any signs of allergic reaction to antibiotics (rash, difficulty breathing). - If the cat develops abnormal behavior or dies during the 10-day observation period. Follow-Up: - Routine follow-up in 48?72 hours is recommended to assess for early signs of infection or complications, as cat bites have a high risk of delayed infection. - If wound infection develops, obtain wound cultures and adjust antibiotics per susceptibility. Additional Notes: - Cat bites are associated with a higher risk of infection than dog bites due to deep puncture wounds and oral fuad. - Most infections present within 12?24 hours; close monitoring is essential. - No primary closure was performed due to risk of infection; delayed closure may be considered if no infection develops after several days. Patient Education: - Avoid contact with the cat until the wound has healed. - Educate on signs of infection and rabies. - Encourage completion of the antibiotic course and adherence to wound care instructions. Legal/Reporting: - Animal bites may be reportable to local health authorities depending on jurisdiction Print Language: [place] Coding Level of Care Code ED Pediatric Hospitalist for Eliud Fuentes
== END 2025-01-01 21:35 | disposition home or self-care (01) ==
PROVIDERS: Emergency Provider Physician Assistant; PCP Family Medicine
DX: S61.451A Open bite of right hand, initial encounter (principal); S40.812A Abrasion of left upper arm, initial encounter; W55.01XA Bitten by cat, initial encounter; W55.03XA Scratched by cat, initial encounter; E11.9 Type 2 diabetes mellitus without complications; I10 Essential (primary) hypertension; Z79.4 Long term (current) use of insulin
CPT/HCPCS: 90471; 90715; 99283